=== PATIENT | male | born 1975 | race Caucasian/White ===

== ENCOUNTER → 2017-12-31 17:13 | Outpatient (CLI) | payer OTHER, SELFPAY | PROVIDERS: Family Provider Specialist; PCP Specialist; Visit Provider Physician Assistant Medical | DX: M45.9 Ankylosing spondylitis of unspecified sites in spine (principal); Z53.20 Procedure and treatment not carried out because of patient's decision for unspecified reasons ==

== ENCOUNTER → 2018-01-28 18:17 | Outpatient (CLI) | payer OTHER, SELFPAY ==
--- NOTE | 2018-01-28 | DI.MRI.S_ITS ---
PROCEDURE: MR CERVICAL SPINE WO/W CON INDICATIONS: ANKYLOSING SPONDYLITIS TECHNIQUE: Noncontrast sagittal T1 spin echo and T2 fast spin echo, sagittal STIR, foraminal oblique sagittal T2 fast spin echo, axial gradient echo or T2 fast spin echo through the cervical spine. After the administration of contrast, axial and sagittal T1 spin echo with fat saturation through the cervical spine. COMPARISON: [facility], CR, XR CERVICAL SPINE WITH OBLIQUES, 03/15/2017, 10:50. [facility], CR, XR LUMBAR SPINE WITH OBLIQUES, 03/15/2017, 10:50. FINDINGS: Image quality: Excellent. Alignment and curvature: There is normal bony alignment. Marrow: Marrow is normal in overall signal, without suspicious enhancement. There is a small degree of inflammatory change involving the upper anterior vertebral body of C5, adjacent to the degenerative changes at the C4-5 disc space. Spinal cord: Visualized spinal cord has normal size and signal. No cerebellar tonsillar herniation. No abnormal intramedullary enhancement. Paraspinous soft tissues: No paravertebral masses or suspicious enhancement. C2-3: Normal appearance except for minimal degenerative disc dehydration. C3-4: Normal appearance, except for mild degenerative disc height reduction and disc desiccation.. C4-5: Moderate degenerative disc disease, slight posterior disc bulge. Asymmetric right-sided moderate degenerative facet osteoarthritis and mild such degeneration on the left with potential for asymmetric impingement on the course of the C5 nerve roots, right greater than left. Mild anterior spinal stenosis C5-6: Degenerative disc disease is moderate, facet osteoarthritis is greater on the right than the left with asymmetric right greater than left foraminal stenosis, and likelihood of asymmetric impingement on the course of the right C6 nerve root. The posterior disc bulging is greater on the right than the left and there is secondary mild right-sided foraminal stenosis. C6-7: Normal appearance except for mild disc height reduction and desiccation. C7-T1: Normal appearance except for minimal disc height reduction and disc desiccation. IMPRESSION: No contrast enhancing lesion is found. Mild inflammatory component of degenerative disc disease at the anterior upper C5 vertebral body secondary to the moderate degenerative disc disease at C4-C5 immediately above. There is only a small degree of spinal stenosis and a greater degree of facet osteoarthritis with foraminal stenosis as discussed in detail by level of the body of the report above, generally greater on the right than the left. Morphologically the appearance along the cervical spine does not indicate presence of disseminated ankylosing spondylitis. There is a single area of anterior bridging of the cervical vertebral bodies, at C5-6. Ankylosis above and below this level is not found, and this appearance was also previously noted during plain film imaging 03/15/17. Dictated by: Rigoberto Bowden M.D. on 01/30/2018 at 11:44 Approved by: Rigoberto Bowden M.D. on 01/30/2018 at 12:02
== END ==
PROVIDERS: PCP Specialist; Visit Provider Physician Assistant Medical
DX: M45.0 Ankylosing spondylitis of multiple sites in spine (principal); M50.321 Other cervical disc degeneration at C4-C5 level; M48.02 Spinal stenosis, cervical region; M47.812 Spondylosis without myelopathy or radiculopathy, cervical region
CPT/HCPCS: 72156; A9579

== ENCOUNTER 2018-03-01 18:38 | Emergency (ER) | payer OTHER, SELFPAY ==
[2018-03-01 18:41] VITALS: BP 148/91; PULSE 81; RESP 18; TEMP 36.4; O2SAT 95; BMI 31.1
[2018-03-01 19:08] VITALS: RESP 20; O2SAT 94
[2018-03-01] MEDS: ALBUTEROL/IPRATROPIUM 3 ML AMPUL INH (19:08)
--- NOTE | 2018-03-01 19:22 | DI.RAD.S_ITS ---
PROCEDURE: XR CHEST 2V INDICATIONS: sob TECHNIQUE: 2 views of the chest were acquired. COMPARISON: [facility], , CHEST 2 VIEW, 03/22/2016, 18:56. FINDINGS: Surgical changes and devices: None. Lungs and pleura: No pleural effusions or pneumothorax. Lungs are clear. Mediastinum: Mediastinal contours are normal. Heart size is normal. Bones and chest wall: No suspicious bony abnormalities. Soft tissues appear unremarkable. IMPRESSION: No acute cardiopulmonary disease. Dictated by: Sena Rojas M.D. on 03/01/2018 at 19:42 Approved by: Sena Rojas M.D. on 03/01/2018 at 19:43
--- NOTE | 2018-03-01 19:32 | ED_ITS ---
HPI - SOB/Dyspnea <GEORGE Holden - Last Filed: 03/01/18 21:22> General Chief Complaint: Shortness of Breath/Dyspnea Stated Complaint: SOB Time Seen by Provider: 03/01/18 19:09 Source: patient and family Mode of arrival: ambulatory Limitations: no limitations History of Present Illness Patient is a 42-year-old nonsmoker who presents with a chief complaint of shortness of breath. He states he started coughing and having congestion approximately 2-3 weeks ago. He is now having shortness of breath as of the past few days. He states he is having chest pain and tightness, worse when he is taking a deep breath or coughing. Denies any fevers. He denies any nausea vomiting or diarrhea. Denies any sore throat or ear pain. Related Data Home Medications Medication Instructions Recorded Confirmed folic acid #0 03/22/16 meloxicam [Mobic] #0 03/22/16 omeprazole #0 03/22/16 Previous Rx's Medication Instructions Recorded oseltamivir [Tamiflu] 75 mg PO BID #10 cap 03/23/16 cyclobenzaprine 10 mg PO TID PRN #20 tab 03/01/18 doxycycline hyclate 100 mg PO BID #20 cap 03/01/18 Allergies Allergy/AdvReac Type Severity Reaction Status Date / Time Penicillins Allergy Intermediate Rash Verified 03/01/18 18:45 Review of Systems <[facility] - Last Filed: 03/01/18 21:22> Review of Systems GENERAL: Denies chills, fatigue, malaise, fever, sweats. HEENT: Denies sinus pain, ear pain, sore throat, difficulty swallowing, dizziness. RESPIRATORY: See HPI CARDIOVASCULAR: See HPI GASTROINTESTINAL: Denies nausea, vomiting, abdominal pain, diarrhea, constipation, melena. : Denies dysuria, frequency, incontinence, hematuria, urinary retention. MUSCULOSKELETAL: denies weakness, joint pain, or bony pain SKIN: Denies rash, skin lesions, or other NEUROLOGIC: Denies weakness, headache, numbness, change in speech, confusion, seizures, incoordination. PSYCHIATRIC: No concerning psychosocial issues. 12 point review of systems is negative except for those stated above Exam <[facility] - Last Filed: 03/01/18 21:22> Narrative Exam Narrative: GENERAL: This is a well-nourished, well-developed patient, in no acute distress HEAD: Atraumatic. Normocephalic. No temporal or scalp tenderness. EYES: Pupils equal round and reactive. Extraocular motions intact. No scleral icterus. No injection or drainage. ENT: Nose without bleeding, purulent drainage or septal hematoma. Throat without erythema, tonsillar hypertrophy or exudate. Uvula midline. Airway patent. NECK: Trachea midline. No JVD or lymphadenopathy. Supple, nontender, no meningeal signs. CARDIOVASCULAR: Regular rate and rhythm without murmurs, gallops, or rubs. RESPIRATORY: Clear to auscultation. Breath sounds equal bilaterally. No wheezes , rales, or rhonchi. Persistent cough during exam. No accessory muscle use. Pain on anterior posterior compression of chest wall. No pain on lateral compression of chest wall. GASTROINTESTINAL: Abdomen soft, non-tender, nondistended. No hepato-splenomegaly , or palpable masses. No guarding. EXTREMITIES: No clubbing, cyanosis, or edema. No joint tenderness, effusion, or edema noted. BACK: Nontender without deformity or crepitance. No flank tenderness. Pain to palpation of thoracic paraspinal muscles left side. NEURO: AOx3. SKIN: No rash or erythema. Initial Vital Signs Initial Vital Signs: Vital Signs Temperature 97.6 F 03/01/18 18:41 Pulse Rate 81 03/01/18 18:41 Respiratory Rate 18 03/01/18 18:41 Blood Pressure 148/91 H 03/01/18 18:41 Pulse Oximetry 95 03/01/18 18:41 <Janette Lord DO - Last Filed: 03/02/18 01:21> Initial Vital Signs Initial Vital Signs: Vital Signs Temperature 97.6 F 03/01/18 18:41 Pulse Rate 81 03/01/18 18:41 Respiratory Rate 18 03/01/18 18:41 Blood Pressure 148/91 H 03/01/18 18:41 Pulse Oximetry 95 03/01/18 18:41 Course <JUVENCIO Holden-BC - Last Filed: 03/01/18 21:22> Orders Ordered: ED Orders 03/01/18 18:49 EKG-12 Lead Stat 03/01/18 19:22 XR chest 2V Stat 03/01/18 19:35 Complete Blood Count AUTO DIFF Stat Comprehensive Metabolic Panel Stat Troponin & CK Cardiac Panel Stat Discontinued Medications Albuterol (Ventolin Hfa Prepack) 1 [facility] SEEINSTR ONE Stop: 03/01/18 20:55 Last Admin: 03/01/18 21:12 Dose: 1 box Albuterol/Ipratropium (Duoneb) 3 ml INH NOW ONE Stop: 03/01/18 19:07 Last Admin: 03/01/18 19:08 Dose: 3 ml Cyclobenzaprine HCl (Flexeril) 10 mg PO NOW ONE Stop: 03/01/18 20:55 Last Admin: 03/01/18 21:12 Dose: 10 mg Doxycycline Hyclate (Vibramycin) 100 mg PO NOW ONE Stop: 03/01/18 20:55 Last Admin: 03/01/18 21:12 Dose: 100 mg Vital Signs - 8 hr 03/01/18 18:41 03/01/18 19:08 03/01/18 20:33 Temperature 97.6 F Pulse Rate 81 75 Respiratory Rate 18 20 17 Blood Pressure 148/91 H Blood Pressure [Right Arm] 138/76 Pulse Oximetry 95 94 96 03/01/18 21:16 Temperature Pulse Rate 81 Respiratory Rate 15 Blood Pressure Blood Pressure [Right Arm] 134/89 Pulse Oximetry 98 <Janette Lord, - Last Filed: 03/02/18 01:21> Orders Ordered: ED Orders 03/01/18 18:49 EKG-12 Lead Stat 03/01/18 19:22 XR chest 2V Stat 03/01/18 19:35 Complete Blood Count AUTO DIFF Stat Comprehensive Metabolic Panel Stat Troponin & CK Cardiac Panel Stat Discontinued Medications Albuterol (Ventolin Hfa Prepack) 1 [facility] SEEINSTR ONE Stop: 03/01/18 20:55 Last Admin: 03/01/18 21:12 Dose: 1 box Albuterol/Ipratropium (Duoneb) 3 ml INH NOW ONE Stop: 03/01/18 19:07 Last Admin: 03/01/18 19:08 Dose: 3 ml Cyclobenzaprine HCl (Flexeril) 10 mg PO NOW ONE Stop: 03/01/18 20:55 Last Admin: 03/01/18 21:12 Dose: 10 mg Doxycycline Hyclate (Vibramycin) 100 mg PO NOW ONE Stop: 03/01/18 20:55 Last Admin: 03/01/18 21:12 Dose: 100 mg Vital Signs - 8 hr 03/01/18 18:41 03/01/18 19:08 03/01/18 20:33 Temperature 97.6 F Pulse Rate 81 75 Respiratory Rate 18 20 17 Blood Pressure 148/91 H Blood Pressure [Right Arm] 138/76 Pulse Oximetry 95 94 96 03/01/18 21:16 Temperature Pulse Rate 81 Respiratory Rate 15 Blood Pressure Blood Pressure [Right Arm] 134/89 Pulse Oximetry 98 MDM - SOB/Dyspnea <JUVENCIO Holden-BC - Last Filed: 03/01/18 21:22> Lab Data Result diagrams: 03/01/18 19:35 03/01/18 19:35 Lab Results 03/01/18 03/01/18 Range/Units 19:35 19:35 WBC 9.1 (4.5-11.0) X10^3/uL RBC 5.26 (4.5-5.9) X10^6/uL Hgb 15.6 (13.5-17.5) g/dL Hct 46.1 (41-53) % MCV 87.8 (80-100) fL MCH 29.8 (26-34) PG MCHC 33.9 (30-36) % RDW 14.8 (11.6-14.8) % Plt Count 260 (150-400) X10^3/uL Neut % (Auto) 55.8 (50-75) % Lymph % (Auto) 26.3 (25-40) % Tucker % (Auto) 12.2 (3-14) % Eos % (Auto) 4.8 H (2-4) % Baso % (Auto) 0.9 (0-2) % Neut # (Auto) 5100 (5982-3375) /uL Sodium 143 (137-145) mmol/L Potassium 4.0 (3.4-5.1) mmol/L Chloride 102 (98-107) mmol/L Carbon Dioxide 29 (22-32) mmol/L BUN 16 (9-20) mg/dL Creatinine 0.70 (0.66-1.25) mg/dL Estimated GFR > 60.0 (>60) mL/min BUN/Creatinine Ratio 22.9 H (6-22) Glucose 132 H (70-100) mg/dL Calcium 9.4 (8.4-10.2) mg/dL Total Bilirubin 0.5 (0.2-1.3) mg/dL AST 43 (17-59) IU/L ALT 50 (21-72) IU/L Alkaline Phosphatase 91 (38-126) U/L Total Creatine Kinase 132 (55-170) U/L CK-MB (CK-2) 1.31 (<2.37) ng/mL CK-MB (CK-2) Rel Index 1.0 L (1.5-5.0) % Troponin I < 0.012 (0.01-0.034) ng/mL Total Protein 7.4 (6.3-8.2) g/dL Albumin 4.3 (3.5-5.0) g/dL Globulin 3.1 (1.7-4.1) g/dL Albumin/Globulin Ratio 1.4 (1.0-2.8) Imaging Data Chest x-ray: Radiologist's impression: View Report History Print [address] [address] XRay Report Signed Patient: Bj Pollard MR#: [id number] : 1975 Acct:[id number] Age/Sex: 42 / M Date of Service: 03/01/18 Loc: Accession Number: [id number] Procedure: XR chest 2V Ordering Provider: Janette Chowdary PROCEDURE: XR CHEST 2V INDICATIONS: sob TECHNIQUE: 2 views of the chest were acquired. COMPARISON: [facility], CHEST 2 VIEW, 03/22/2016, 18:56. FINDINGS: Surgical changes and devices: None. Lungs and pleura: No pleural effusions or pneumothorax. Lungs are clear. Mediastinum: Mediastinal contours are normal. Heart size is normal. Bones and chest wall: No suspicious bony abnormalities. Soft tissues appear unremarkable. IMPRESSION: No acute cardiopulmonary disease. Dictated by: Sena Rojas M.D. on 03/01/2018 at 19:42 Approved by: Sena Rojas M.D. on 03/01/2018 at 19:43 ECG Data Attestation: I personally reviewed and interpreted this ECG as follows: Interpretation: Sinus rhythm. No ST elevation or depression. Ventricular rate 68. No ectopy noted. MDM Narrative Medical decision making narrative: Patient presents with a chief complaint of a cough going on for several weeks with recent shortness of breath associated with coughing episodes. He did complain of chest pain upon coughing and taking deep breaths. He had a normal EKG as well as an negative troponin. The fact his pain is reproducible as encouraging is a musculoskeletal etiology. He is immunocompromised. Thus given the duration of his cough I am going to to treat him for an atypical pneumonia. I will use doxycycline given high resistance rates of azithromycin. I discussed at length with the patient use of sunscreen. Given the patient's muscle spasm on exam and associated pain, I am also giving him prescription for Flexeril. I discussed at length return precautions the emergency department including sudden shortness of breath or chest pain or acute concerns. I encouraged him to follow up with primary care provider in a few days. Patient and had no questions or concerns upon discharge. <Janette Lord, DO - Last Filed: 03/02/18 01:21> Lab Data Lab Results 03/01/18 03/01/18 Range/Units 19:35 19:35 WBC 9.1 (4.5-11.0) X10^3/uL RBC 5.26 (4.5-5.9) X10^6/uL Hgb 15.6 (13.5-17.5) g/dL Hct 46.1 (41-53) % MCV 87.8 (80-100) fL MCH 29.8 (26-34) PG MCHC 33.9 (30-36) % RDW 14.8 (11.6-14.8) % Plt Count 260 (150-400) X10^3/uL Neut % (Auto) 55.8 (50-75) % Lymph % (Auto) 26.3 (25-40) % Tucker % (Auto) 12.2 (3-14) % Eos % (Auto) 4.8 H (2-4) % Baso % (Auto) 0.9 (0-2) % Neut # (Auto) 5100 (2215-2442) /uL Sodium 143 (137-145) mmol/L Potassium 4.0 (3.4-5.1) mmol/L Chloride 102 (98-107) mmol/L Carbon Dioxide 29 (22-32) mmol/L BUN 16 (9-20) mg/dL Creatinine 0.70 (0.66-1.25) mg/dL Estimated GFR > 60.0 (>60) mL/min BUN/Creatinine Ratio 22.9 H (6-22) Glucose 132 H (70-100) mg/dL Calcium 9.4 (8.4-10.2) mg/dL Total Bilirubin 0.5 (0.2-1.3) mg/dL AST 43 (17-59) IU/L ALT 50 (21-72) IU/L Alkaline Phosphatase 91 (38-126) U/L Total Creatine Kinase 132 (55-170) U/L CK-MB (CK-2) 1.31 (<2.37) ng/mL CK-MB (CK-2) Rel Index 1.0 L (1.5-5.0) % Troponin I < 0.012 (0.01-0.034) ng/mL Total Protein 7.4 (6.3-8.2) g/dL Albumin 4.3 (3.5-5.0) g/dL Globulin 3.1 (1.7-4.1) g/dL Albumin/Globulin Ratio 1.4 (1.0-2.8) Discharge Plan Departure Patient Disposition: Home Clinical Impression: Lower respiratory infection (e.g., bronchitis, pneumonia, pneumonitis, pulmonitis) Discharge Date/Time: 03/01/18 21:23 Interventions: ED Discharge Assessment Last Done: 03/01/18 21:15 Instructions: DI for Pneumonia -- Adult, DI for Back Spasm, DI for Atypical Pneumonia Activity Restrictions/Additional Instructions: Given the duration of your cough combined with your immunocompromised status, I am initiating treatment with antibiotics. Please use sunscreen while taking doxycycline. I am also giving you Flexeril for the muscle pain in you back. 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 Please follow -up with her primary care provider if not feeling better in a few days. Please come back to the emergency department for any acute concerns such as chest pain or shortness of breath. Prescriptions: New doxycycline hyclate 100 mg capsule 100 mg PO BID Qty: 20 RF: 0 cyclobenzaprine 10 mg tablet 10 mg PO TID PRN (Reason: muscle spasm) Qty: 20 RF: 0 No Action meloxicam [Mobic] 7.5 mg Tablet Qty: 0 RF: 0 omeprazole 10 mg Capsule,Delayed Release(Dr/Ec) Qty: 0 RF: 0 folic acid 800 mcg Tablet Qty: 0 RF: 0 oseltamivir [Tamiflu] 75 MG capsule 75 mg PO BID Qty: 10 RF: 0 Referrals: Vicente Montenegro MD [Primary Care Provider] - <Janette Lord DO - Last Filed: 03/02/18 01:21> Cosign ED Attending Cosignature Attestation: I was immediately available in the department for consultation. This documentation has been reviewed and I agree with assessment and plan. Supervised by Janette Lord DO
[2018-03-01 19:59] LABS: Add Manual Diff / Slide Review NO; Basophils Percent Auto 0.9 % (0-2); Eosinophils Percent Auto 4.8 % (2-4); Hematocrit 46.1 % (41-53); Hemoglobin 15.6 g/dL (13.5-17.5); Lymphocytes Percent Auto 26.3 % (25-40); Mean Corpuscular HGB Conc 33.9 % (30-36); Mean Corpuscular Hemoglobin 29.8 PG (26-34); Mean Corpuscular Volume 87.8 fL (80-100); Monocytes Percent Auto 12.2 % (3-14); Neutrophils Absolute Auto 5100 /uL (1500-7000); Neutrophils Percent Auto 55.8 % (50-75); Platelet Count 260 X10^3/uL (150-400); Red Blood Cell Count 5.26 X10^6/uL (4.5-5.9); Red Cell Distribution Width 14.8 % (11.6-14.8); White Blood Cell Count 9.1 X10^3/uL (4.5-11.0)
[2018-03-01 20:09] LABS: Alanine Aminotransferase 50 IU/L (21-72); Albumin 4.3 g/dL (3.5-5.0); Albumin Globulin Ratio 1.4 (1.0-2.8); Alkaline Phosphatase 91 U/L (38-126); Aspartate Aminotransferase 43 IU/L (17-59); BUN Creatinine Ratio 22.9 (6-22); Bilirubin Total 0.5 mg/dL (0.2-1.3); Blood Urea Nitrogen 16 mg/dL (9-20); Calcium 9.4 mg/dL (8.4-10.2); Carbon Dioxide 29 mmol/L (22-32); Chloride 102 mmol/L (98-107); Creatine Kinase 132 U/L (55-170); Estimated Glomerular Filt Rate > 60.0 mL/min (>60); Globulin 3.1 g/dL (1.7-4.1); Glucose 132 mg/dL (70-100); HEMOLYSIS 53 (0-50); Sodium 143 mmol/L (137-145); Total Protein 7.4 g/dL (6.3-8.2)
[2018-03-01 20:23] LABS: Troponin I < 0.012 ng/mL (0.01-0.034)
[2018-03-01 20:24] LABS: Creatine Kinase MB 1.31 ng/mL (<2.37)
[2018-03-01 20:33] VITALS: BP 138/76; PULSE 75; RESP 17; O2SAT 96
[2018-03-01] MEDS: ALBUTEROL HFA PREPACK 1 BOX MISC (21:12)
[2018-03-01] MEDS: CYCLOBENZAPRINE 10 MG TABLET PO (21:12)
[2018-03-01] MEDS: DOXYCYCLINE HYCLATE 100 MG TABLET PO (21:12)
[2018-03-01 21:16] VITALS: BP 134/89; PULSE 81; RESP 15; O2SAT 98
== END 2018-03-01 21:23 | disposition home or self-care (01) ==
PROVIDERS: Emergency Provider Nurse Practitioner Family; PCP Specialist
DX: J22 Unspecified acute lower respiratory infection (principal)
CPT/HCPCS: 71046; 80053; 82550; 82553; 84484; 85025; 93005; 94640; 99282; 99285

== ENCOUNTER 2018-07-03 18:51 | Emergency (ER) | payer OTHER, SELFPAY ==
[2018-07-03 19:12] VITALS: BP 160/93; PULSE 86; RESP 14; TEMP 37.2; O2SAT 98; BMI 30.9
--- NOTE | 2018-07-03 19:12 | ED_ITS ---
HPI - Eye Problem General Chief complaint: Eye Problems Stated complaint: FEELS LIKE SOMETHING IN HIS LEFT EYE Time Seen by Provider: 07/03/18 18:52 Source: patient Mode of arrival: ambulatory Limitations: no limitations History of Present Illness HPI Narrative: 42-year-old male here for evaluation of left eye irritation. Patient states that he started have some irritation yesterday and worsened today. He states he feels like there something in his eye. States he was using a weed whacker last weekend but nothing recently. Is not doing any metal work. Does not wear glasses or contacts. Has not tried anything for his symptoms. He states that he has had some sinus congestion recently. Does have some ear pain. He states that the discomfort is causing him to have a headache. no specific trauma to his eye. Has never had p.r. K or LASIK Related Data Home Medications Medication Instructions Recorded Confirmed folic acid #0 03/22/16 meloxicam [Mobic] #0 03/22/16 omeprazole #0 03/22/16 Previous Rx's Medication Instructions Recorded oseltamivir [Tamiflu] 75 mg PO BID #10 cap 03/23/16 cyclobenzaprine 10 mg PO TID PRN #20 tab 03/01/18 doxycycline hyclate 100 mg PO BID #20 cap 03/01/18 erythromycin 0.5 inch EYE-LEFT QID 3 Days #3.5 07/03/18 gram Allergies Allergy/AdvReac Type Severity Reaction Status Date / Time Penicillins Allergy Intermediate Rash Verified 07/03/18 19:12 Review of Systems Constitutional Denies fever(s) and Reports headache(s) Eyes Reports blurry vision, Denies diplopia, Reports dry eyes, Reports irritation, Reports itchy eyes, Reports eye pain and Reports photophobia Comments: All of his symptoms are left eye ENT Ears, Nose, Mouth, and Throat: Denies vertigo, Denies dizziness, Reports headache(s), Denies disequilibrium, Reports sinus pressure and Denies sore throat Cardiovascular Denies chest pain Respiratory Denies cough Musculoskeletal Denies myalgias and Denies arthralgias Integumentary/Breasts Denies rash Neurologic Denies behavioral changes, Denies vertigo, Denies dizziness, Reports headache(s), Denies paresthesias and Denies disequilibrium Psychiatric Denies behavioral changes Hematologic/Lymphatic Denies easy bleeding and Denies easy bruising Allergic/Immunologic Denies urticaria and Reports itchy eyes [facility] Medical History Rheumatoid arthritis (Acute) Social History Smoking Status: Never smoker Social History Smoking Status: Never smoker Exam Initial Vital Signs Initial Vital Signs: Vital Signs Temperature 98.9 F 07/03/18 19:12 Pulse Rate 86 07/03/18 19:12 Respiratory Rate 14 07/03/18 19:12 Blood Pressure 160/93 H 07/03/18 19:12 Pulse Oximetry 98 07/03/18 19:12 Const General: cooperative, healthy appearing, comfortable, well developed, well groomed and No acute distress Orientation: alert, awake and oriented x3 HENMT Head: normal to inspection and normocephalic Ears: hearing grossly normal bilaterally and TM's normal bilaterally Nose: external nose normal Face and sinus: normal facial exam Mouth: oral mucosae normal Throat: posterior oropharynx normal Eyes Pupils: PERRL EOM: EOM intact bilaterally Other: Right eye unremarkable. Left eye has some keratitis. No foreign body noted with direct vision and with the slit lamp. I did norman the upper eyelid and lower eyelid. No uptake with the fluorescein stain. No cells or flare noticed with the slit lamp. No consensual photophobia. Does have some direct photophobia with the left eye. Interocular pressure right eye 20 interocular pressure left eye 17 Resp Effort & Inspection: normal respiratory effort Skin Other: Some dry skin and redness around the left eye. Neuro General: alert and awake Cognition: normal cognition Speech: speech normal Extrem General: normal to inspection and capillary refill normal Course Orders Ordered: Discontinued Medications Erythromycin (Erythromycin Ophth Oint) 1 applic EYE-LEFT NOW ONE Stop: 07/03/18 19:43 Last Admin: 07/03/18 19:47 Dose: 1 applic Vital Signs - 8 hr 07/03/18 19:12 07/03/18 19:13 07/03/18 19:57 Temperature 98.9 F 98.9 F Pulse Rate 86 86 70 Respiratory Rate 14 14 18 Blood Pressure 160/93 H 160/93 H Blood Pressure [Left Arm] 159/105 H Pulse Oximetry 98 98 98 MDM - Eye Problem MDM Narrative Medical decision making narrative: No foreign body seen. No corneal abrasions seen. The redness around his eye is most consistent with him rubbing his eye not from a cellulitis. He has no consensual photophobia. No cells or flare seen on the slit lamp. Considered iritis/uveitis however I feel that a conjunct ivitis is most likely the cause currently. He does not wear glasses or contacts. Will treat with erythromycin ointment for now. He was given strict return precautions. He was given follow-up instructions. He expressed understanding and agreement with plan. Discharge Plan Departure Patient Disposition: Home Clinical Impression: Conjunctivitis Qualifiers: Conjunctivitis type: acute Acute conjunctivitis type: unspecified Laterality: left Qualified Code(s): H10.32 - Unspecified acute conjunctivitis, left eye Discharge Date/Time: 07/03/18 20:05 Interventions: ED Discharge Assessment Last Done: 07/03/18 20:05 Instructions: Conjunctivitis Activity Restrictions/Additional Instructions: Be sure to wash your hands frequently. Do not share towels. Use the antibiotic ointment as directed. If the symptoms worsen or the redness around your eye worsens or if any other new symptoms please return to the emergency department for further evaluation. Prescriptions: New erythromycin 5 mg/gram (0.5 %) ointment 0.5 inch EYE-LEFT QID 3 Days Qty: 3.5 RF: 0 No Action meloxicam [Mobic] 7.5 mg Tablet Qty: 0 RF: 0 omeprazole 10 mg Capsule,Delayed Release(Dr/Ec) Qty: 0 RF: 0 folic acid 800 mcg Tablet Qty: 0 RF: 0 oseltamivir [Tamiflu] 75 MG capsule 75 mg PO BID Qty: 10 RF: 0 doxycycline hyclate 100 mg capsule 100 mg PO BID Qty: 20 RF: 0 cyclobenzaprine 10 mg tablet 10 mg PO TID PRN (Reason: muscle spasm) Qty: 20 RF: 0 Referrals: Vicente Montenegro MD [Primary Care Provider] -
[2018-07-03 19:13] VITALS: BP 160/93; PULSE 86; RESP 14; TEMP 37.2; O2SAT 98; BMI 30.9
[2018-07-03] MEDS: ERYTHROMYCIN OPHTH 1 GM OINT 1 APPLIC EYE-LEFT (19:47)
[2018-07-03 19:57] VITALS: BP 159/105; PULSE 70; RESP 18; O2SAT 98
== END 2018-07-03 20:05 | disposition home or self-care (01) ==
PROVIDERS: Emergency Provider Emergency Medicine; PCP Specialist
DX: H10.32 Unspecified acute conjunctivitis, left eye (principal); H92.03 Otalgia, bilateral; L98.8 Other specified disorders of the skin and subcutaneous tissue
CPT/HCPCS: 99283

== ENCOUNTER → 2020-03-29 15:40 | Outpatient (CLI) | payer OTHER, SELFPAY ==
--- NOTE | 2020-03-29 15:42 | DI.CT.S_ITS ---
PROCEDURE: CT SOFT TISSUE NECK W CON INDICATIONS: Generalized enlarged lymph nodes TECHNIQUE: After the administration of intravenous contrast, 3.0 mm axial sections acquired from the sella to the aortic arch. Additional oblique axial 3.0 mm sections acquired through the pharynx. 3 mm thick coronal and sagittal reformats were generated. For radiation dose reduction, the following was used: automated exposure control. COMPARISON: [facility], MR, MR CERVICAL SPINE WO/W CON, 01/28/2018, 18:30. [facility], CR, XR CERVICAL SPINE WITH OBLIQUES, 03/15/2017, 10:50. FINDINGS: Image quality: Excellent. Lymph nodes: No enlarged lymph nodes seen throughout the neck. However, borderline prominent lymph nodes are seen, including within the submandibular regions. Vessels: Visualized vasculature appears patent. Neck spaces: The oropharynx, nasopharynx, and pharynx demonstrate no mucosal lesions. The vocal cords, false vocal cords, pyriform sinuses, epiglottis, vallecula, and tongue base all appear normal. Extramucosal spaces appear unremarkable. Glands: A markers placed upon the area of clinical concern, as seen on series 2, image 2. Immediately deep to this marker, there is a normal appearing right submandibular gland, which is slightly larger than the contralateral left submandibular gland. Note is made of a 1 cm calcification along the anterior aspect of the left submandibular gland, as on series 2, image 45. No regional masses can be seen. The parotid glands appear normal. Thyroid gland demonstrates no significant abnormality. Miscellaneous: Visualized brain and orbits appear normal. Lung apices appear clear. Superficial soft tissues appear normal. Bones: No suspicious bony lesions. Visualized sinuses and mastoids appear unremarkable. Relatively prominent cervical spine degenerative changes are seen, with at least moderate disc space narrowing at C3-C4 and C4-C5, with moderate to severe disc space narrowing at C5-C6 and C6-C7. Prominent bridging anterior osteophytes are seen at C5-C6. IMPRESSION: No enlarged lymph nodes or masses are seen. Given the placement of the soft tissue marker at the area of clinical concern, the palpated lesion may simply be related to a normal appearing RIGHT submandibular gland, which is slightly larger than the normal LEFT submandibular gland. There is a focus of calcification along the anterior aspect of the LEFT submandibular gland, which may be related to sialolithiasis. Please correlate with known patient history. Incidental note is made of: Relatively prominent cervical spine degenerative change. Dictated by: Alejandro Bergman M.D. on 03/29/2020 at 15:31 Approved by: Alejandro Bergman M.D. on 03/29/2020 at 15:35
== END ==
PROVIDERS: PCP Family Medicine; Referring Provider Family Medicine; Visit Provider Physician Assistant Medical
DX: R59.1 Generalized enlarged lymph nodes (principal); M47.812 Spondylosis without myelopathy or radiculopathy, cervical region
CPT/HCPCS: 70491; Q9967

== ENCOUNTER 2020-07-01 10:41 | Emergency (ER) | payer OTHER, SELFPAY ==
[2020-07-01 10:50] VITALS: BP 145/97; PULSE 98; RESP 18; TEMP 36.8; O2SAT 96; BMI 31.6
[2020-07-01 11:33] LABS: Add Manual Diff / Slide Review NO; Basophils Absolute Auto 100 /uL (0-100); Basophils Percent Auto 1.1 % (0-2); Eosinophils Absolute Auto 500 /uL (0-450); Eosinophils Percent Auto 6.9 % (2-4); Hematocrit 45.3 % (41-53); Hemoglobin 15.8 g/dL (13.5-17.5); Lymphocytes Absolute Auto 1600 /uL (1100-4500); Lymphocytes Percent Auto 21.3 % (25-40); Mean Corpuscular HGB Conc 34.9 % (30-36); Mean Corpuscular Hemoglobin 31.7 PG (26-34); Mean Corpuscular Volume 90.9 fL (80-100); Monocytes Absolute Auto 500 /uL (0-900); Monocytes Percent Auto 6.6 % (3-14); Neutrophils Absolute Auto 4700 /uL (1500-7000); Neutrophils Percent Auto 64.1 % (50-75); Platelet Count 270 X10^3/uL (150-400); Red Blood Cell Count 4.98 X10^6/uL (4.5-5.9); Red Cell Distribution Width 13.6 % (11.6-14.8); White Blood Cell Count 7.3 X10^3/uL (4.5-11.0)
[2020-07-01 11:43] LABS: Alanine Aminotransferase 64 IU/L (<50); Albumin 4.6 g/dL (3.5-5.0); Albumin Globulin Ratio 1.5 (1.0-2.8); Alkaline Phosphatase 73 U/L (38-126); Aspartate Aminotransferase 56 IU/L (17-59); BUN Creatinine Ratio 23.8 (6-22); Bilirubin Total 0.6 mg/dL (0.2-1.3); Blood Urea Nitrogen 19 mg/dL (9-20); Calcium 9.6 mg/dL (8.4-10.2); Carbon Dioxide 27 mmol/L (22-32); Chloride 102 mmol/L (98-107); Estimated Glomerular Filt Rate > 60.0 mL/min (>60); Globulin 3.1 g/dL (1.7-4.1); Glucose 158 mg/dL (70-100); HEMOLYSIS 50 (0-50); Potassium 4.1 mmol/L (3.4-5.1); Sodium 139 mmol/L (137-145); Total Protein 7.7 g/dL (6.3-8.2)
[2020-07-01] MEDS: ACETAMINOPHEN 325 MG TABLET 975 MG PO (12:01)
--- NOTE | 2020-07-01 12:03 | PC.NURSE ---
Pt c/o right flank pain on and off but increasing in frequency. Has h/o kidney stones and this feel similar.
--- NOTE | 2020-07-01 12:06 | ED_ITS ---
HPI - Back Pain/Injury General Chief Complaint: Urogenital-Male Stated Complaint: RIGHT SIDE BACK PAIN, DEEP, ACHING PAIN Time Seen by Provider: 07/01/20 11:42 Source: patient Limitations: no limitations History of Present Illness HPI Narrative: Patient is a 44-year-old male with history of rheumatoid arthritis who presents with right-sided back pain ongoing for last 3-4 days. He has not taken anything for pain, but he has taken Tylenol p.m. at night which does seem to help. It is pinpoint and radiates. [facility] He has no radiation down to his groin like he did with his prior kidney stone. He has minimal abdominal pain no nausea or vomiting. Pinpoint is worse with movement MD Complaint: back pain Location: thoracic spine Severity: mild Related Data Allergies Allergy/AdvReac Type Severity Reaction Status Date / Time No Known Drug Allergies Allergy Verified 07/01/20 10:54 Review of Systems Review of Systems Narrative: GENERAL: Denies chills,fever HEENT: Denies throat pain RESPIRATORY: Denies dyspnea, cough, wheezing CARDIOVASCULAR: Denies chest pain, palpitations GASTROINTESTINAL: Denies nausea, vomiting MUSCULOSKELETAL: See HPI SKIN: No rash, no laceration, no pruritus NEUROLOGIC: Denies weakness, dizziness, headache, numbness 8 point review of systems is negative except for those stated above and HPI Patient History Medical History Rheumatoid arthritis Social History Smoking Status: Never smoker Smoking Status: Never smoker alcohol intake frequency: 0-2 drinks per day Substance Use Type: does not use Exam Initial Vital Signs Initial Vital Signs: Vital Signs Temperature 98.2 F 07/01/20 10:50 Pulse Rate 98 H 07/01/20 10:50 Respiratory Rate 18 07/01/20 10:50 Blood Pressure 145/97 H 07/01/20 10:50 Pulse Oximetry 96 07/01/20 10:50 GENERAL: Well-appearing, well-nourished and in no acute distress. HEENT: Head atraumatic,EOMI, pupils reactive, face symmetric, moist mucous membranes CARDIOVASCULAR: Regular rate and rhythm without murmurs, rubs or gallops. RESPIRATORY: Breath sounds equal bilaterally, no wheezes rales or rhonchi. ABDOMEN: Soft, nontender. Normoactive bowel sounds all 4 quadrants. No guarding or rebound. BACK: No vertebral tenderness no step-off, pinpoint tender over all [place] posteriorly pain reproducible with palpation : No CVA tenderness EXTREMITIES: Normal range of motion, no clubbing or edema. Neurovascularly intact NEUROLOGICAL: Alert and oriented x4.Normal gait and speech. SKIN: Warm, dry, no laceration, no petechiae, no rashes or lesions. Course Orders Ordered: ED Orders 07/01/20 11:20 Complete Blood Count AUTO DIFF Stat Comprehensive Metabolic Panel Stat Discontinued Medications Acetaminophen (Acetaminophen 325 Mg Tablet) 975 mg PO NOW ONE Stop: 07/01/20 11:43 Last Admin: 07/01/20 12:01 Dose: 975 mg Documented by: TIMOTHY Vital Signs Vital signs: Vital Signs - 8 hr 07/01/20 10:50 07/01/20 12:19 Temperature 98.2 F Pulse Rate 98 H 77 Respiratory Rate 18 14 Blood Pressure 145/97 H 136/79 Pulse Oximetry 96 94 MDM - Back Pain/Injury Lab Data Attestation: I reviewed the patient's lab results. Result diagrams: 07/01/20 11:20 07/01/20 11:20 Labs: Lab Results 07/01/20 07/01/20 Range/Units 11:20 11:20 WBC 7.3 (4.5-11.0) X10^3/uL RBC 4.98 (4.5-5.9) X10^6/uL Hgb 15.8 (13.5-17.5) g/dL Hct 45.3 (41-53) % MCV 90.9 (80-100) fL MCH 31.7 (26-34) PG MCHC 34.9 (30-36) % RDW 13.6 (11.6-14.8) % Plt Count 270 (150-400) X10^3/uL Neut % (Auto) 64.1 (50-75) % Lymph % (Auto) 21.3 L (25-40) % [place] % (Auto) 6.6 (3-14) % Eos % (Auto) 6.9 H (2-4) % Baso % (Auto) 1.1 (0-2) % Neut # (Auto) 4700 (4775-3815) /uL Lymph # (Auto) 1600 (5506-5667) /uL [place] # (Auto) 500 (0-900) /uL Eos # (Auto) 500 H (0-450) /uL Baso # (Auto) 100 (0-100) /uL Sodium 139 (137-145) mmol/L Potassium 4.1 (3.4-5.1) mmol/L Chloride 102 (98-107) mmol/L Carbon Dioxide 27 (22-32) mmol/L BUN 19 (9-20) mg/dL Creatinine 0.80 (0.66-1.25) mg/dL Estimated GFR > 60.0 (>60) mL/min BUN/Creatinine Ratio 23.8 H (6-22) Glucose 158 H (70-100) mg/dL Calcium 9.6 (8.4-10.2) mg/dL Total Bilirubin 0.6 (0.2-1.3) mg/dL AST 56 (17-59) IU/L ALT 64 H (<50) IU/L Alkaline Phosphatase 73 (38-126) U/L Total Protein 7.7 (6.3-8.2) g/dL Albumin 4.6 (3.5-5.0) g/dL Globulin 3.1 (1.7-4.1) g/dL Albumin/Globulin Ratio 1.5 (1.0-2.8) Urine Dip Bedside Urine Glucose Negative Bedside Urine Bilirubin - Negative Bedside Urine Ketone - Negative Urine Specific [place] 1.030 Bedside Urine Occult Blood - Negative Bedside Urine pH 6 Bedside Urine Protein - Negative Bedside Urine Urobilinogen - Negative Bedside Urine Nitrite - Negative Bedside Urine Leukocytes - Negative Esterase MDM Narrative Medical decision making narrative: At this time patient has pain point pain reproducible with palpation is more consistent with musculoskeletal since not show any blood reassuring at this time he has had no injury and I see no indication for imaging. Low suspicion for kidney stone. Abdomen is soft unlikely to be cholecystitis. He is unable to take NSAIDs due to his rheumatoid arthritis medication. He is given Tylenol here in the ED recommend he take Tylenol for pain. Recommend follow-up Discharge Plan Departure Patient Disposition: Home Clinical Impression: Back pain Qualifiers: Back pain location: thoracic back pain Chronicity: acute Back pain laterality: right Qualified Code(s): M54.6 - Pain in thoracic spine Instructions: DI for Thoracic Back Pain Activity Restrictions/Additional Instructions: *You have been diagnosed with back pain *What to do: At this time likely musculoskeletal pain recommend light massage and heating. *Continue to take medications as directed Tylenol 1000 mg every 6 hours if needed for [id number] pain *Follow up with your primary care provider in 2-3 days *Return to ER if you should have increasing pain, nausea vomiting, fever or any new, worsening or concerning symptoms Referrals: Emerald Rosa MD [Primary Care Provider] -
[2020-07-01 12:19] VITALS: BP 136/79; PULSE 77; RESP 14; O2SAT 94
== END 2020-07-01 12:21 | disposition home or self-care (01) ==
PROVIDERS: Emergency Provider Emergency Medicine; PCP Family Medicine
DX: M54.6 Pain in thoracic spine (principal)
CPT/HCPCS: 80053; 81003; 85025; 99283

== ENCOUNTER 2020-08-15 18:45 | Emergency (ER) | payer OTHER, SELFPAY ==
[2020-08-15 18:50] VITALS: BP 150/90; PULSE 70; RESP 16; TEMP 36.7; O2SAT 96
--- NOTE | 2020-08-15 20:19 | ED_ITS ---
HPI - Skin/Abscess/Foreign Bdy General Chief complaint: Skin/Abscess/Foreign Body Stated complaint: lump lower left abdomen Time Seen by Provider: 08/15/20 19:33 Source: patient Mode of arrival: Ambulatory Limitations: no limitations History of Present Illness HPI narrative: This is a 44-year-old male comes to the emergency department with complaint of a lump on his left lower abdomen which has since developed inc reasing swelling, discomfort and redness. He states that very painful but mildly tender. It has been irritated by his pants as well as seatbelt. Patient denies any fevers chills. He denies any other symptoms. He has shaved his chest and abdomen recently. And his family at bedside notes he often gets ingrown hairs on his chin. Patient does have a history of rheumatoid arthritis. He is on immune modulator Cosentyx. Patient denies any other regular medications. He has not had other issues with skin infections he is aware of. He denies any drug allergies. He has not had similar symptoms in this area. Related Data Previous Rx's Medication Instructions Recorded clindamycin HCl 300 mg PO QID #28 cap 08/15/20 Allergies Allergy/AdvReac Type Severity Reaction Status Date / Time No Known Drug Allergies Allergy Verified 07/01/20 10:54 Review of Systems Review of Systems ROS Unobtainable: All systems reviewed & are unremarkable except as noted in HPI and below Patient History Medical History Rheumatoid arthritis Social History Smoking Status: Never smoker Smoking Status: Never smoker alcohol intake frequency: 0-2 drinks per day Substance Use Type: does not use Exam Narrative Exam Narrative: GENERAL: Alert and oriented x three, well-nourished male in mild distress. HEENT: Head normocephalic, atraumatic, EOMI, pupils reactive, face symmetric, moist mucous membranes NECK: Supple, full range of motion CARDIOVASCULAR: Regular rate and rhythm without murmurs, rubs or gallops. RESPIRATORY: Breath sounds equal bilaterally, no wheezes rales or rhonchi. ABDOMEN: Soft, nontender. Normoactive bowel sounds all 4 quadrants. No guarding or rebound, rigidity, no mass. Patient has a 6 cm x 3 cm area of cellulitis with a centralized area of fluctuance that is about a cm in size which is soft. Areas only very mildly tender to touch. There is no active drainage. : No CVA tenderness EXTREMITIES: Normal range of motion, no clubbing or edema. Neurovascularly intact NEUROLOGICAL: Cranial nerves II through XII grossly intact. Moving all extremities SKIN: Warm, dry, no petechiae, no rashes or lesions. Initial Vital Signs Initial Vital Signs: Vital Signs Temperature 98.0 F 08/15/20 18:50 Pulse Rate 70 08/15/20 18:50 Respiratory Rate 16 08/15/20 18:50 Blood Pressure 150/90 H 08/15/20 18:50 Pulse Oximetry 96 08/15/20 18:50 Procedures Abscess I/D I&D #1: Site: abdomen Side (if applicable): left (lower abdomen) Local Anesthetic: lidocaine 1% Amount of anesthesia used (mL): 2 Technique: needle aspiration and incised with #11 blade Amount of fluid expressed (mL): 3 Irrigation: Yes Packing used?: none Course Orders Ordered: ED Orders 08/15/20 20:51 Wound Culture and Gram Stain Stat Discontinued Medications Clindamycin HCl (Clindamycin 150 Mg Capsule) 300 mg PO NOW ONE Stop: 08/15/20 20:33 Last Admin: 08/15/20 20:37 Dose: 300 mg Documented by: HELADIO Lidocaine/Sodium Bicarbonate (Lido 1%/Sod Bicarb 8.4% (10ml) 10 Ml Syringe) 10 ml INJ NOW ONE Stop: 08/15/20 20:33 Last Admin: 08/15/20 20:37 Dose: 10 ml Documented by: HELADIO Vital Signs Vital signs: Vital Signs - 8 hr 08/15/20 18:50 08/15/20 21:02 Temperature 98.0 F Pulse Rate 70 78 Respiratory Rate 16 20 Blood Pressure 150/90 H 144/90 H Pulse Oximetry 96 95 MDM - Skin/Abscess/Foreign Bdy Imaging Data bedside US: My Impression: Bedside ultrasound shows a 1 cm area of fluid collection just below the skin. It does not appear loculated. Discharge Plan Departure Patient Disposition: Home Clinical Impression: Abscess of skin of abdomen, Cellulitis of abdominal wall Instructions: DI for Skin Abscess Activity Restrictions/Additional Instructions: Follow-up with your physician in next 2-3 days for wound check. Take antibiotics until completely gone. Prescription to [facility] You may take Tylenol up to a 1000 mg every 8 hours and or ibuprofen up to 800 mg every 8 hours as needed for pain. Wound Care: Keep wound(s) clean and dry. Wash daily with soap and water only. Do not use over the counter products (alcohol or peroxide)on the wounds unless instructed by a physician. If wound condition worsens (increased/expanding redness, developing fluid blisters, or worsening pain), either contact your doctor for an urgent re- assessment , or return to the Emergency Department. Return to the Emergency Department for any new or worsening symptoms. Return if fever greater than 100.4 Fahrenheit, increased swelling, increasing pain or worsening symptoms such as increased discharge or spreading redness. Use warm compresses 3 times daily for 20 minutes to the affected area. If there is packing in place do not pull it out, if it falls out do not try to replace it. Prescriptions: New clindamycin HCl 300 mg capsule 300 mg PO QID Qty: 28 RF: 0 Referrals: Emerald Rosa MD [Primary Care Provider] -
[2020-08-15] MEDS: LIDO 1%/SOD BICARB 8.4% (10ML) 10 ML SYRINGE INJ (20:37)
[2020-08-15] MEDS: CLINDAMYCIN 150 MG CAPSULE 300 MG PO (20:37)
[2020-08-15 21:02] VITALS: BP 144/90; PULSE 78; RESP 20; O2SAT 95
== END 2020-08-15 21:03 | disposition home or self-care (01) ==
PROVIDERS: Emergency Provider Emergency Medicine; PCP Family Medicine
DX: L03.311 Cellulitis of abdominal wall (principal); L02.211 Cutaneous abscess of abdominal wall
CPT/HCPCS: 10060; 87070; 87075; 87077; 87147; 87186; 87205; 99283

== ENCOUNTER → 2020-12-30 08:09 | Outpatient (CLI) | payer OTHER, SELFPAY ==
[2020-12-30 08:36] LABS: Add Manual Diff / Slide Review NO; Basophils Absolute Auto 100 /uL (0-100); Basophils Percent Auto 1.3 % (0-2); Eosinophils Absolute Auto 500 /uL (0-450); Eosinophils Percent Auto 6.2 % (2-4); Hematocrit 43.8 % (41-53); Hemoglobin 15.2 g/dL (13.5-17.5); Lymphocytes Absolute Auto 1400 /uL (1100-4500); Lymphocytes Percent Auto 18.5 % (25-40); Mean Corpuscular HGB Conc 34.6 % (30-36); Mean Corpuscular Hemoglobin 30.5 PG (26-34); Mean Corpuscular Volume 88.1 fL (80-100); Monocytes Absolute Auto 700 /uL (0-900); Monocytes Percent Auto 9.6 % (3-14); Neutrophils Absolute Auto 4900 /uL (1500-7000); Neutrophils Percent Auto 64.4 % (50-75); Platelet Count 287 X10^3/uL (150-400); Red Blood Cell Count 4.98 X10^6/uL (4.5-5.9); Red Cell Distribution Width 13.6 % (11.6-14.8); White Blood Cell Count 7.6 X10^3/uL (4.5-11.0)
[2020-12-30 08:55] LABS: Erythrocyte Sedimentation Rate 4 MM/HR (0-15)
[2020-12-30 09:13] LABS: Alanine Aminotransferase 38 IU/L (<50); Albumin 4.4 g/dL (3.5-5.0); Albumin Globulin Ratio 1.5 (1.0-2.8); Alkaline Phosphatase 72 U/L (38-126); Aspartate Aminotransferase 39 IU/L (17-59); BUN Creatinine Ratio 15.9 (6-22); Bilirubin Total 0.6 mg/dL (0.2-1.3); Blood Urea Nitrogen 14 mg/dL (9-20); C-Reactive Protein Quant 1.9 mg/dL (<1.0); Calcium 9.5 mg/dL (8.4-10.2); Carbon Dioxide 28 mmol/L (22-32); Chloride 101 mmol/L (98-107); Estimated Glomerular Filt Rate > 60.0 mL/min (>60); Globulin 2.9 g/dL (1.7-4.1); Glucose 93 mg/dL (70-100); HEMOLYSIS < 15 (0-50); Potassium 4.1 mmol/L (3.4-5.1); Sodium 139 mmol/L (137-145); Total Protein 7.3 g/dL (6.3-8.2); Uric Acid 9.1 mg/dL (3.5-8.5)
== END ==
PROVIDERS: PCP Family Medicine; Referring Provider Physician Assistant Medical; Visit Provider Physician Assistant Medical
DX: M54.9 Dorsalgia, unspecified (principal)
CPT/HCPCS: 36415; 80053; 84550; 85025; 85651; 86140

== ENCOUNTER → 2021-04-05 10:08 | Outpatient (CLI) | payer OTHER, SELFPAY ==
[2021-04-05 11:59] LABS: Influenza A - CEPHEID Flu A NEGATIVE (NEGATIVE); Influenza B - CEPHEID Flu B NEGATIVE (NEGATIVE)
[2021-04-05 12:43] LABS: COVID19 -Nasal RAPID Negative (Negative)
== END ==
PROVIDERS: PCP Family Medicine; Referring Provider Nurse Practitioner Family; Visit Provider Nurse Practitioner Family
DX: Z20.822 Contact with and (suspected) exposure to COVID-19 (principal); R68.89 Other general symptoms and signs
CPT/HCPCS: 87502; 87635

== ENCOUNTER 2021-07-26 18:12 | Emergency (ER) | payer OTHER, SELFPAY ==
[2021-07-26 18:21] VITALS: BP 177/98; PULSE 77; RESP 16; TEMP 36.5; O2SAT 97; BMI 33.9
[2021-07-26 19:44] LABS: Bacteria Urine None Seen; Culture Indicated Urine Cult Not Indicated; RBC Urine 5-10/HPF (0-5/HPF); Squamous Epithelial Cell Urine None Seen (0-5/HPF); WBC Urine None Seen (0-5/HPF)
--- NOTE | 2021-07-26 20:01 | DI.CT.S_ITS ---
PROCEDURE: CT KIDNEY URETER BLADDER (KUB) INDICATIONS: flank pain, suspect stone TECHNIQUE: Axial sections were acquired from the lung bases to the pubic symphysis. Coronal and sagittal reformats were performed. For radiation dose reduction, the following was used: automated exposure control, adjustment of mA and/or kV according to patient size. COMPARISON: [facility], CT, KUB - CT (PNL), 03/23/2014, 8:48. FINDINGS: Image quality: Excellent. Lung bases: There is mild atelectasis in the lung bases. Heart: Heart is normal in size. URINARY: Right Kidney and Ureter: There is an obstructing urinary stone at the right ureterovesicular junction extending into the bladder. This measures up to 1.1 cm in dimension and demonstrates attenuation values of approximately 700-800 Hounsfield units. There is associated mild to moderate right hydroureteronephrosis with perinephric and periureteral fat stranding. There are 2 additional nonobstructing right renal stones, with the largest stone measuring up to 0.4 cm. Left Kidney and Ureter: No stones or hydronephrosis. No hydroureter. There is an exophytic left renal cyst. Bladder: Normal wall thickness. No stones. ABDOMEN: Liver: Noncontrast evaluation of the liver demonstrates no discrete mass. Gallbladder: Within normal limits without calcified gallstones. Biliary ducts: No biliary ductal dilatation. Pancreas: Unremarkable. Spleen: Normal in size. Adrenal Glands: No adrenal nodules. Stomach and Bowel: Stomach, small bowel loops, and colon are normal in caliber and wall thickness. The appendix is normal in appearance. There is colonic diverticulosis without acute diverticulitis. Peritoneum: No abnormal intraperitoneal fluid. No free air. Ventral Wall: No hernia. Abdominal Nodes: No retroperitoneal or mesenteric adenopathy by size criteria. Vessels: Aorta and inferior vena cava are normal in size. PELVIS: Pelvic Organs: Unremarkable. Pelvic Nodes: No enlarged lymph nodes. Miscellaneous: No inguinal hernias identified. Bones: Visualized osseous structures demonstrate no suspicious focal lesions. There is mild superior endplate scalloping of the T10 vertebral body redemonstrated. IMPRESSION: 1. Obstructing urinary stone at the right UVJ with mild to moderate right hydroureteronephrosis. 2. Additional nonobstructing right renal stones as described. Dictated by: Geovani Feliciano M.D. on 07/26/2021 at 20:30 Approved by: Geovani Feliciano M.D. on 07/26/2021 at 20:34
[2021-07-26 20:14] LABS: Add Manual Diff / Slide Review NO; Basophils Absolute Auto 100 /uL (0-100); Basophils Percent Auto 0.8 % (0-2); Eosinophils Absolute Auto 400 /uL (0-450); Eosinophils Percent Auto 3.6 % (2-4); Hematocrit 44.6 % (41-53); Hemoglobin 15.6 g/dL (13.5-17.5); Lymphocytes Absolute Auto 1700 /uL (1100-4500); Lymphocytes Percent Auto 16.5 % (25-40); Mean Corpuscular HGB Conc 34.9 % (30-36); Mean Corpuscular Hemoglobin 31.5 PG (26-34); Mean Corpuscular Volume 90.4 fL (80-100); Monocytes Absolute Auto 1200 /uL (0-900); Monocytes Percent Auto 11.8 % (3-14); Neutrophils Absolute Auto 6900 /uL (1500-7000); Neutrophils Percent Auto 67.3 % (50-75); Platelet Count 248 X10^3/uL (150-400); Red Blood Cell Count 4.94 X10^6/uL (4.5-5.9); Red Cell Distribution Width 13.4 % (11.6-14.8); White Blood Cell Count 10.3 X10^3/uL (4.5-11.0)
[2021-07-26] MEDS: KETOROLAC 30 MG/ML VIAL 15 MG IV (20:14)
[2021-07-26] MEDS: SODIUM CHLORIDE 0.9% 1,000 ML 1000 ML IV ×2 (20:14→22:52)
[2021-07-26 20:19] LABS: Alanine Aminotransferase 90 IU/L (<50); Albumin 4.7 g/dL (3.5-5.0); Albumin Globulin Ratio 1.5 (1.0-2.8); Alkaline Phosphatase 79 U/L (38-126); Aspartate Aminotransferase 89 IU/L (17-59); BUN Creatinine Ratio 16.5 (6-22); Bilirubin Total 0.5 mg/dL (0.2-1.3); Blood Urea Nitrogen 26 mg/dL (9-20); Calcium 9.3 mg/dL (8.4-10.2); Carbon Dioxide 31 mmol/L (22-32); Chloride 103 mmol/L (98-107); Estimated Glomerular Filt Rate 55 mL/min (>60); Globulin 3.2 g/dL (1.7-4.1); Glucose 106 mg/dL (70-100); HEMOLYSIS 19 (0-50); Potassium 4.3 mmol/L (3.4-5.1); Sodium 140 mmol/L (137-145); Total Protein 7.9 g/dL (6.3-8.2)
--- NOTE | 2021-07-26 22:43 | ED_ITS ---
HPI - General Adult General Chief complaint: Urogenital-Male Stated complaint: Rt Lower Back Pain Time Seen by Provider: 07/26/21 20:01 Source: patient Mode of arrival: Ambulatory History of Present Illness HPI narrative: 45-year-old gentleman with a diagnosis of rheumatoid arthritis currently on Cosentyx monthly history of a kidney stone approximately 7 years ago presents with right flank pain that is been worse since approximately noon today. He tried some ibuprofen earlier that dulled the pain a bit but by dinnertime he found that he was so uncomfortable that he came to the emergency department for help with pain control. He is not noticing fevers, chills, vomiting, abdominal pain. He has chronic diarrhea from his Cosentyx. He has not had hematuria, dysuria or urgency. No cough or palpitations. Related Data Previous Rx's Medication Instructions Recorded clindamycin HCl 300 mg capsule 300 mg PO QID #28 cap 08/15/20 oxycodone-acetaminophen 5 mg-325 1 tab PO Q6H PRN #14 tab 07/27/21 mg tablet tamsulosin 0.4 mg capsule (Flomax) 0.4 mg PO DAILY #30 cap 07/27/21 Allergies Allergy/AdvReac Type Severity Reaction Status Date / Time No Known Drug Allergies Allergy Verified 04/05/21 09:58 Review of Systems Review of Systems Narrative: Remainder of complete review of systems is otherwise unremarkable except for that included in the HPI. Patient History Medical History (Updated 07/27/21 @ 00:38 by Hannah Murcia MD) Kidney stones Rheumatoid arthritis Social History Smoking Status: Never smoker Smoking Status: Never smoker alcohol intake frequency: 0-2 drinks per day Substance Use Type: does not use Exam Initial Vital Signs Initial Vital Signs: Vital Signs Temperature 97.7 F 07/26/21 18:21 Pulse Rate 77 07/26/21 18:21 Respiratory Rate 16 07/26/21 18:21 Blood Pressure 177/98 H 07/26/21 18:21 Pulse Oximetry 97 07/26/21 18:21 General: Healthy appearing, in no acute distress. Able to give a complete and coherent history. Well-nourished well-developed HEENT: Moist mucous membranes, normal sclera with reactive pupils, Neck: No JVD, supple Respiratory: Lungs are clear to auscultation, no wheezing no rales no rhonchi. Full and symmetrical air movement Cardiac: Regular rate and rhythm no murmurs no bruits Abdomen: Soft, nontender, good bowel tones, right flank pain Skin: Warm and dry, no rashes Neurologic: Grossly neurologically intact with no obvious asymmetries or abnormalities Extremities: No trauma, well perfused Psych: Cooperative, appropriate insight and affect Course Orders Ordered: ED Orders 07/26/21 19:55 Complete Blood Count AUTO DIFF Stat Comprehensive Metabolic Panel Stat 07/26/21 20:01 CT kidney ureter bladder (KUB) Stat 07/26/21 23:52 BMP [Basic Metabolic Panel] Stat Discontinued Medications Hydromorphone HCl (Hydromorphone 0.5 Mg Inj) 0.5 mg IV Q15MIN PRN PRN Reason: Pain, Last Admin: 07/26/21 22:47 Dose: 0.5 mg Documented by: [email or web address] Sodium Chloride (Normal Saline 0.9%) 1,000 mls @ 1,000 mls/hr IV BOLUS ONE Stop: 07/26/21 21:00 Last Infusion: 07/26/21 22:34 Dose: 0 mls/hr Documented by: Admin: 07/26/21 20:14 Dose: 1,000 mls/hr Documented by: ALANA Sodium Chloride (Normal Saline 0.9%) 1,000 mls @ 1,000 mls/hr IV BOLUS ONE Stop: 07/26/21 23:50 Last Infusion: 07/27/21 00:45 Dose: 0 mls/hr Documented by: Admin: 07/26/21 22:52 Dose: 1,000 mls/hr Documented by: [email or web address] Sodium Chloride (Normal Saline 0.9%) 1,000 mls @ 1,000 mls/hr IV BOLUS ONE Stop: 07/26/21 23:51 Ketorolac Tromethamine (Ketorolac 30 Mg/Ml Vial) 15 mg IV NOW ONE Stop: 07/26/21 20:02 Last Admin: 07/26/21 20:14 Dose: 15 mg Documented by: ALANA Oxycodone/Acetaminophen (Oxycodone/Acetaminophen 5/325 Tablet) 1 tab PO NOW ONE Stop: 07/26/21 22:53 Last Admin: 07/26/21 23:38 Dose: 1 tab Documented by: ALANA Oxycodone/Acetaminophen (Oxycodone/Apap 5/325 Prepack) 1 bottle MISC SEEINSTR ONE Stop: 07/26/21 22:53 Last Admin: 07/26/21 23:37 Dose: 1 bottle Documented by: ALANA Tamsulosin HCl (Tamsulosin 0.4 Mg Capsule) 0.4 mg PO NOW ONE Stop: 07/26/21 22:53 Last Admin: 07/26/21 23:37 Dose: 0.4 mg Documented by: ALANA Vital Signs Vital signs: Vital Signs - 8 hr 07/26/21 22:56 07/27/21 01:00 Pulse Rate 75 68 Respiratory Rate 20 14 Blood Pressure 146/90 H 142/86 H Pulse Oximetry 95 98 Medical Decision Making Lab Data Result diagrams: 07/26/21 19:55 07/26/21 23:52 Labs: Lab Results 07/26/21 07/26/21 07/26/21 Range/Units 18:25 19:55 19:55 WBC 10.3 (4.5-11.0) X10^3/uL RBC 4.94 (4.5-5.9) X10^6/uL Hgb 15.6 (13.5-17.5) g/dL Hct 44.6 (41-53) % MCV 90.4 (80-100) fL MCH 31.5 (26-34) PG MCHC 34.9 (30-36) % RDW 13.4 (11.6-14.8) % Plt Count 248 (150-400) X10^3/uL Neut % (Auto) 67.3 (50-75) % Lymph % (Auto) 16.5 L (25-40) % [place] % (Auto) 11.8 (3-14) % Eos % (Auto) 3.6 (2-4) % Baso % (Auto) 0.8 (0-2) % Neut # (Auto) 6900 (1642-5970) /uL Lymph # (Auto) 1700 (1147-8977) /uL [place] # (Auto) 1200 H (0-900) /uL Eos # (Auto) 400 (0-450) /uL Baso # (Auto) 100 (0-100) /uL Sodium 140 (137-145) mmol/L Potassium 4.3 (3.4-5.1) mmol/L Chloride 103 (98-107) mmol/L Carbon Dioxide 31 (22-32) mmol/L BUN 26 H (9-20) mg/dL Creatinine 1.58 H (0.66-1.25) mg/dL Estimated GFR 55 L (>60) mL/min BUN/Creatinine Ratio 16.5 (6-22) Glucose 106 H (70-100) mg/dL Calcium 9.3 (8.4-10.2) mg/dL Total Bilirubin 0.5 (0.2-1.3) mg/dL AST 89 H (17-59) IU/L ALT 90 H (<50) IU/L Alkaline Phosphatase 79 (38-126) U/L Total Protein 7.9 (6.3-8.2) g/dL Albumin 4.7 (3.5-5.0) g/dL Globulin 3.2 (1.7-4.1) g/dL Albumin/Globulin Ratio 1.5 (1.0-2.8) Urine RBC 5-10/hpf H (0-5/HPF) Urine WBC None seen (0-5/HPF) Ur Squamous Epith Cells None seen (0-5/HPF) Urine Bacteria None seen (None) Ur Culture Indicated? Cult not indicated 07/26/21 Range/Units 23:52 WBC (4.5-11.0) X10^3/uL RBC (4.5-5.9) X10^6/uL Hgb (13.5-17.5) g/dL Hct (41-53) % MCV (80-100) fL MCH (26-34) PG MCHC (30-36) % RDW (11.6-14.8) % Plt Count (150-400) X10^3/uL Neut % (Auto) (50-75) % Lymph % (Auto) (25-40) % [place] % (Auto) (3-14) % Eos % (Auto) (2-4) % Baso % (Auto) (0-2) % Neut # (Auto) (9471-4124) /uL Lymph # (Auto) (4665-5244) /uL [place] # (Auto) (0-900) /uL Eos # (Auto) (0-450) /uL Baso # (Auto) (0-100) /uL Sodium 140 (137-145) mmol/L Potassium 4.1 (3.4-5.1) mmol/L Chloride 106 (98-107) mmol/L Carbon Dioxide 26 (22-32) mmol/L BUN 23 H (9-20) mg/dL Creatinine 1.49 H (0.66-1.25) mg/dL Estimated GFR 59 L (>60) mL/min BUN/Creatinine Ratio 15.4 (6-22) Glucose 105 H (70-100) mg/dL Calcium 8.2 L (8.4-10.2) mg/dL Total Bilirubin (0.2-1.3) mg/dL AST (17-59) IU/L ALT (<50) IU/L Alkaline Phosphatase (38-126) U/L Total Protein (6.3-8.2) g/dL Albumin (3.5-5.0) g/dL Globulin (1.7-4.1) g/dL Albumin/Globulin Ratio (1.0-2.8) Urine RBC (0-5/HPF) Urine WBC (0-5/HPF) Ur Squamous Epith Cells (0-5/HPF) Urine Bacteria (None) Ur Culture Indicated? Urine Dip Bedside Urine Glucose Negative Bedside Urine Bilirubin - Negative Bedside Urine Ketone - Negative Urine Specific [place] 1.015 Bedside Urine Occult Blood +++ Bedside Urine pH 7.0 Bedside Urine Protein +/- 15 Bedside Urine Urobilinogen - Negative Bedside Urine Nitrite - Negative Bedside Urine Leukocytes - Negative Esterase Point of care testing: Urine Dip Bedside Urine Glucose Negative Bedside Urine Bilirubin - Negative Bedside Urine Ketone - Negative Urine Specific [place] 1.015 Bedside Urine Occult Blood +++ Bedside Urine pH 7.0 Bedside Urine Protein +/- 15 Bedside Urine Urobilinogen - Negative Bedside Urine Nitrite - Negative Bedside Urine Leukocytes - Negative Esterase Imaging Data CT scan - abdomen/pelvis: Radiologist's Impression: FINDINGS:? Image quality:? Excellent.? ? Lung bases:? There is mild atelectasis in the lung bases. Heart:? Heart is normal in size. ? URINARY: Right Kidney and Ureter: ? There is an obstructing urinary stone at the right ureterovesicular junction extending into the bladder.? This measures up to 1.1 cm in dimension and demonstrates attenuation values of approximately 700-800 Hounsf ield units.? There is associated mild to moderate right hydroureteronephrosis with perinephric and periureteral fat stranding.? There are 2 additional nonobstructing right renal stones, with the largest stone measuring up to 0.4 cm. ? Left Kidney and Ureter: ? No stones or hydronephrosis.? No hydroureter.? There is an exophytic left renal cyst. ? Bladder:? Normal wall thickness. No stones. ? ? ? ABDOMEN: Liver:? Noncontrast evaluation of the liver demonstrates no discrete? mass. Gallbladder:? Within normal limits without calcified gallstones.? ? Biliary ducts:? No biliary ductal dilatation.? ? Pancreas:? Unremarkable.? ? Spleen:? Normal in size.? ? Adrenal Glands:? No adrenal nodules.? ? ? Stomach and Bowel:? Stomach, small bowel loops, and colon are normal in caliber and wall thickness.? The appendix is normal in appearance.? There is colonic diverticulosis without acute diverticulitis. Peritoneum:? No abnormal intraperitoneal fluid.? No free air.? ? Ventral Wall: ? No hernia.? Abdominal Nodes:? No retroperitoneal or mesenteric adenopathy by size criteria.? Vessels:? Aorta and inferior vena cava are normal in size.? ? PELVIS: Pelvic Organs:? Unremarkable.? ? Pelvic Nodes: No enlarged lymph nodes.? Miscellaneous: No inguinal hernias identified. ? ? ? Bones:? Visualized osseous structures demonstrate no suspicious focal lesions.? There is mild superior endplate scalloping of the T10 vertebral body redemonstrated. IMPRESSION:? ? 1.? Obstructing urinary stone at the right UVJ with mild to moderate right hydroureteronephrosis. ? 2. Additional nonobstructing right renal stones as described.? ? ? Dictated by: Geovani Feliciano M.D. on 07/26/2021 at 20:30? ?? [facility] Narrative Medical decision making narrative: Gentleman with right flank pain for last 6-[address] scan confirms right obstructing urinary stone at the ureterovesical junction measuring 1.1 cm. He does have mild acute kidney injury with prior creatinines in the 0.7-0.9 range in today at 1.5. Pain was initially controlled with Toradol, he was given a L of fluid however within an hour and half pain is actually back if not worse than prior to arrival. An additional L of fluid, Dilaudid and Flomax are all administered. With the 1.1 cm stone obstructing, the mild acute kidney injury care we reviewed with Urology as outpatient follow-up will be needed. 11:40pm Dr Moses, Urology at . Agrees with rechecking BMP after the 2 L of fluid resuscitation. In light of the fact that he does have 2 functioning kidneys and is able to eat and drink she does not feel that acute hospitalization will be likely due to the renal issue. Given the size of the stone chance of a passing without intervention are low. Will need outpatient follow-up with Urology within the next 2-7 days. Reviewed all of this with patient. Pain is adequately controlled this point. BNP is being repeated now. Discharge Plan Departure Patient Disposition: Home Clinical Impression: Kidney stone on right side, Acute kidney injury Instructions: DI for Kidney Stones Activity Restrictions/Additional Instructions: Thank you for coming in this evening You have a 1.1 cm stone on the right side. This is what is causing her pain. This may be too large to pass completely on its own. Using 400 mg of ibuprofen (2 tibg-hws-mhvzirs pills) and 1 Tylenol every 6 hours can be very helpful in controlling pain. For severe pain you can use 400 mg of ibuprofen and 1 Percocet. Percocet is a narcotic and can cause constipation. You also had a slight increase in your creatinine suggesting chronic dehydration. It may be that the diarrhea from your Cosentyx is contributing to that. You need to make a point of make sure that you are staying exceptionally well hydrated. I have given you a prescription for Flomax. This can help larger stones pass. I would encourage you to continue this until you either passed the stone or talk with the urologist. Prescriptions have been electronically transmitted to [facility] in [place] You do need to follow-up with a urologist.? You can contact the urology office at [facility] at [phone].? Please explain that you are in the emergency department with a kidney stone, is a 1.1 cm stone and you need a follow-up appointment. If they are unable to help, you can try [facility] in [place]. There is a urology group in [place] and a urology group in [place] as well. If you have worsening pain, developed significant fevers, it feels that your developing a bladder infection or having pain with urinating, you need to come back to the emergency room for further evaluation. Prescriptions: New tamsulosin [Flomax] 0.4 mg capsule 0.4 mg PO DAILY Qty: 30 0RF oxycodone-acetaminophen 5-325 mg tablet 1 tab PO Q6H PRN (Reason: pain) Qty: 14 0RF No Action clindamycin HCl 300 mg capsule 300 mg PO QID Qty: 28 0RF Referrals: Emerald Rosa MD [Primary Care Provider] -
[2021-07-26] MEDS: HYDROMORPHONE 0.5 MG INJ IV (22:47)
[2021-07-26 22:56] VITALS: BP 146/90; PULSE 75; RESP 20; O2SAT 95
--- NOTE | 2021-07-26 23:06 | PC.NURSE ---
Pt reported an increase in pain, stating it was worse than when he came in. Pt given medications per MAR for pain.
[2021-07-26] MEDS: TAMSULOSIN 0.4 MG CAPSULE PO (23:37)
[2021-07-26] MEDS: OXYCODONE/APAP 5/325 PREPACK 1 BOTTLE MISC (23:37)
[2021-07-26] MEDS: OXYCODONE/ACETAMINOPHEN 5/325 TABLET 1 TAB PO (23:38)
[2021-07-27 00:07] LABS: BUN Creatinine Ratio 15.4 (6-22); Blood Urea Nitrogen 23 mg/dL (9-20); Calcium 8.2 mg/dL (8.4-10.2); Carbon Dioxide 26 mmol/L (22-32); Chloride 106 mmol/L (98-107); Estimated Glomerular Filt Rate 59 mL/min (>60); Glucose 105 mg/dL (70-100); HEMOLYSIS < 15 (0-50); Potassium 4.1 mmol/L (3.4-5.1); Sodium 140 mmol/L (137-145)
[2021-07-27 01:00] VITALS: BP 142/86; PULSE 68; RESP 14; O2SAT 98
== END 2021-07-27 01:01 | disposition home or self-care (01) ==
PROVIDERS: Emergency Provider Emergency Medicine; PCP Family Medicine
DX: N20.0 Calculus of kidney (principal); N17.9 Acute kidney failure, unspecified; Z87.442 Personal history of urinary calculi
CPT/HCPCS: 36415; 74176; 80048; 80053; 81003; 81015; 85025; 96374; 96375; 99284; J1170; J1885

== ENCOUNTER → 2021-07-31 16:40 | Outpatient (CLI) | payer OTHER, SELFPAY ==
[2021-07-31 17:15] LABS: COVID19 -Nasal RAPID POSITIVE (Negative)
== END ==
PROVIDERS: PCP Family Medicine; Visit Provider Specialist
DX: U07.1 COVID-19 (principal); N17.9 Acute kidney failure, unspecified; N20.1 Calculus of ureter; Z87.442 Personal history of urinary calculi
CPT/HCPCS: 81002; 87635

== ENCOUNTER 2021-08-01 16:30 | Day surgery (SDC) | payer OTHER, SELFPAY ==
[2021-08-01] VITALS (8 sets, daily range): BP systolic 106–154; BP diastolic 73–101; PULSE 57–75; RESP 15–16; TEMP 36.6–36.7; O2SAT 94–97; BMI 34.8
--- NOTE | 2021-08-01 | DI.RAD.S_ITS ---
PROCEDURE: XR KUB INDICATIONS: Right ureterovesical junction calculus TECHNIQUE: One view of the abdomen acquired. COMPARISON: [facility], CT, CT KIDNEY URETER BLADDER (KUB), 07/26/2021, 20:06. FINDINGS: Surgical changes and devices: None. Bowel: Bowel gas pattern is normal. Soft tissues: No suspicious abdominal calcifications. Calcification is noted overlying the right renal shadow. Calcification is also noted overlying the right ureterovesicular junction at the site of recent calcification on 07/26/2021 CT. Visualized solid organ contours appear normal in size. Bones: No suspicious bony lesions. IMPRESSION: Unchanged appearance of calcifications overlying the right renal shadow and ureterovesicular junction. Dictated by: Destinee Mccurdy M.D. on 08/01/2021 at 19:33 Approved by: Destinee Mccurdy M.D. on 08/01/2021 at 19:35
[2021-08-01] MEDS: LACTATED RINGERS 1,000 ML 42 ML IV (18:41)
--- NOTE | 2021-08-01 19:57 | SUR.OPER ---
Lithotomy on padded OR bed, head on pillow, arms secured on padded arm boards at <90 degrees abduction. Safety strap across abdomen. Legs secured in padded yellow fins stirrups. Directed and approved by surgeon
[2021-08-01] MEDS: BELLADONNA/OPIUM SUPPOSITORIES 1 EACH PR (20:31)
--- NOTE | 2021-08-01 20:40 | P.OP_ITS ---
Operative Date/Time/Diagnoses Date of procedure: 08/01/21 Time of procedure: 20:40 Pre-op diagnosis: 1. Obstructing 1.1 cm right ureterovesical junction calculus. 2. Intractable right renal colic. Post-op diagnosis: same Procedure & Clinicians Procedure: 1. Cystoscopy/right ureteroscopic laser lithotripsy. 2. Cystoscopy/right ureteral dilation. Same procedure as scheduled: Yes Indications: 1. Obstructing 1.1 cm right ureterovesical junction calculus. 2. Intractable right renal colic. Surgeon: Mahnaz Grier Click Yes if Unassisted: Yes Anesthesia Type: General Operative Notes Findings: 1. Urethra-normal caliber without annular stricture or lesion. 2. External sphincter-coapted with normal overlying urothelium. 3. Prostate 3-3.5 cm length with mild lateral lobar hyperplasia. 4. Right ureter-the right intramural ureter was edematous with obvious mass effect. Through a patulous right ureteral orifice the distal margin of the stone could be seen approximately 1/2 cm proximal. Meatotomy and extraction was not performed. See below. Closure Type: not applicable Specimen(s): other (Stone fragments-right distal ureter) Estimated Blood Loss (mL): 0 Blood products transfused: none Procedure in detail: The patient was brought to the operating room under patient COVID positive protocol. The patient was positioned supine was administered general anesthesia. The patient was then repositioned in semi lithotomy and the lower abdomen, genitalia, and groin were then prepped and draped in sterile fashion. Twenty-two Uzbek panendoscope was then passed and lower urinary tract with the findings as described above. Panendoscope was then removed and the semi rigid ureteral scope was advanced lower urinary track and then was carefully insinuated into the patulous right ureteral orifice a 200 micron laser was then requested. All operating personnel and patient were fitted with laser safety eyewear. Lithotripsy was then commenced with excellent resultant stone fragmentation. The vast majority of stone fragments and dust were removed from the distal ureteral segment using a combination of hydrostatic and mechanical forces. Next, a 0.35 hybrid guidewire was advanced through the working channel of the scope and advanced into the right ureter under direct and fluoroscopic guidance. Over this a 15 Uzbek 6 cm balloon dilating catheter was advanced over the wire and positioned across the right ureterovesical junction and intra ureter. The balloon was then inflated to 18 atmospheres for 5 minutes. The balloon was then deflated and the wire and dilating balloon were then removed in their entirety. The bladder was then filled and emptied several times to obtained a sizable amount of the fragmented stone for submission to the laboratory for analysis. The bladder is then drained completely and all instrumentation was removed. The patient was then repositioned in supine, was awakened, and recovered in the operating room per positive COVID patient protocol. Complications: none Post-operative Condition: stable Disposition: PACU Plan for aftercare: Discharge home
[2021-08-09 07:39] LABS: Ca oxalate dihydrate 50 % (.); Ca oxalate monohydr 45 % (.); Hydroxyapatite 5 % (.)
== END 2021-08-01 21:25 | disposition home or self-care (01) ==
PROVIDERS: PCP Physician Assistant Medical; Referring Provider Specialist; Visit Provider Specialist
PROC: 0TF68ZZ Fragmentation in Right Ureter, Via Natural or Artificial Opening Endoscopic (ICD-10-PCS; CPT 52353; principal; 2021-08-01 18:00)
DX: N20.1 Calculus of ureter (principal); N40.0 Benign prostatic hyperplasia without lower urinary tract symptoms; U07.1 COVID-19; M06.9 Rheumatoid arthritis, unspecified
CPT/HCPCS: 52353; 74018; 82365; C1771; J1100; J1885; J2250; J2405; J2704; J3010

== ENCOUNTER → 2021-10-17 14:03 | Outpatient (CLI) | payer OTHER, SELFPAY ==
[2021-10-17 16:10] LABS: Add Manual Diff / Slide Review NO; Basophils Absolute Auto 0 /uL (0-100); Basophils Percent Auto 0.7 % (0-2); Eosinophils Absolute Auto 400 /uL (0-450); Eosinophils Percent Auto 5.5 % (2-4); Hematocrit 42.9 % (41-53); Hemoglobin 14.9 g/dL (13.5-17.5); Lymphocytes Absolute Auto 1500 /uL (1100-4500); Lymphocytes Percent Auto 22.8 % (25-40); Mean Corpuscular HGB Conc 34.8 % (30-36); Mean Corpuscular Hemoglobin 31.5 PG (26-34); Mean Corpuscular Volume 90.5 fL (80-100); Monocytes Absolute Auto 700 /uL (0-900); Neutrophils Absolute Auto 3900 /uL (1500-7000); Platelet Count 245 X10^3/uL (150-400); Red Blood Cell Count 4.74 X10^6/uL (4.5-5.9); Red Cell Distribution Width 13.2 % (11.6-14.8); White Blood Cell Count 6.4 X10^3/uL (4.5-11.0)
[2021-10-17 17:00] LABS: Erythrocyte Sedimentation Rate 4 MM/HR (0-15)
[2021-10-17 17:09] LABS: Alanine Aminotransferase 56 IU/L (<50); Albumin 4.3 g/dL (3.5-5.0); Albumin Globulin Ratio 1.4 (1.0-2.8); Alkaline Phosphatase 75 U/L (38-126); Aspartate Aminotransferase 50 IU/L (17-59); BUN Creatinine Ratio 16.7 (6-22); Bilirubin Total 0.4 mg/dL (0.2-1.3); Blood Urea Nitrogen 16 mg/dL (9-20); Calcium 9.2 mg/dL (8.4-10.2); Carbon Dioxide 32 mmol/L (22-32); Chloride 102 mmol/L (98-107); Estimated Glomerular Filt Rate > 60 mL/min (>60); Globulin 3.1 g/dL (1.7-4.1); Glucose 75 mg/dL (70-100); HEMOLYSIS 37 (0-50); Potassium 4.4 mmol/L (3.4-5.1); Sodium 142 mmol/L (137-145); Total Protein 7.4 g/dL (6.3-8.2); Uric Acid 7.7 mg/dL (3.5-8.5)
== END ==
PROVIDERS: PCP Physician Assistant Medical; Referring Provider Physician Assistant Medical; Visit Provider Physician Assistant Medical
DX: M45.9 Ankylosing spondylitis of unspecified sites in spine (principal); E79.0 Hyperuricemia without signs of inflammatory arthritis and tophaceous disease
CPT/HCPCS: 36415; 80053; 84550; 85025; 85651; 86140

== ENCOUNTER 2022-01-19 18:54 | Emergency (ER) | payer OTHER, SELFPAY ==
[2022-01-19 18:56] VITALS: BP 132/91; PULSE 82; RESP 18; TEMP 36.6; O2SAT 97
--- NOTE | 2022-01-19 19:04 | DI.RAD.S_ITS ---
PROCEDURE: XR CHEST 2V INDICATIONS: productive cough TECHNIQUE: 2 views of the chest were acquired. COMPARISON: [facility], CR, XR CHEST 2V, 03/01/2018, 19:33. FINDINGS: Surgical changes and devices: None. Lungs and pleura: Persistent thin curvilinear density projecting over the right mid lung zone likely representing atelectasis versus scarring. No acute airspace disease identified. No pleural effusions or pneumothorax. Mediastinum: Mediastinal contours are normal. Heart size is normal. Bones and chest wall: No suspicious bony abnormalities. Soft tissues appear unremarkable. IMPRESSION: Chest without acute cardiopulmonary abnormalities or focal airspace disease. Dictated by: Aureliano Richardson M.D. on 01/19/2022 at 19:53 Approved by: Aureliano Richardson M.D. on 01/19/2022 at 19:54
[2022-01-19 19:49] LABS: Influenza A - CEPHEID Flu A NEGATIVE (NEGATIVE); Influenza B - CEPHEID Flu B NEGATIVE (NEGATIVE); Respiratory Syncytial Virus Negative (Negative)
[2022-01-19 19:57] LABS: COVID-19 CEPHEID 4-PLEX PCR Negative (Negative)
[2022-01-19 20:28] LABS: Add Manual Diff / Slide Review NO; Basophils Absolute Auto 100 /uL (0-100); Basophils Percent Auto 1.1 % (0-2); Eosinophils Absolute Auto 500 /uL (0-450); Eosinophils Percent Auto 6.1 % (2-4); Hematocrit 45.5 % (41-53); Hemoglobin 15.4 g/dL (13.5-17.5); Lymphocytes Absolute Auto 1700 /uL (1100-4500); Lymphocytes Percent Auto 19.6 % (25-40); Mean Corpuscular HGB Conc 33.9 % (30-36); Mean Corpuscular Hemoglobin 30.9 PG (26-34); Mean Corpuscular Volume 91.1 fL (80-100); Monocytes Absolute Auto 1100 /uL (0-900); Monocytes Percent Auto 12.9 % (3-14); Neutrophils Absolute Auto 5100 /uL (1500-7000); Neutrophils Percent Auto 60.3 % (50-75); Platelet Count 237 X10^3/uL (150-400); Red Blood Cell Count 4.99 X10^6/uL (4.5-5.9); Red Cell Distribution Width 13.6 % (11.6-14.8); White Blood Cell Count 8.4 X10^3/uL (4.5-11.0)
[2022-01-19 20:30] VITALS: BP 141/79
[2022-01-19 20:31] VITALS: PULSE 74; RESP 28; O2SAT 96
[2022-01-19 20:41] LABS: Alanine Aminotransferase 84 IU/L (<50); Albumin 4.2 g/dL (3.5-5.0); Albumin Globulin Ratio 1.3 (1.0-2.8); Alkaline Phosphatase 74 U/L (38-126); Aspartate Aminotransferase 70 IU/L (17-59); BUN Creatinine Ratio 19.4 (6-22); Bilirubin Total 0.5 mg/dL (0.2-1.3); Blood Urea Nitrogen 18 mg/dL (9-20); Calcium 8.8 mg/dL (8.4-10.2); Carbon Dioxide 27 mmol/L (22-32); Chloride 102 mmol/L (98-107); Creatine Kinase 180 U/L (55-170); Estimated Glomerular Filt Rate > 60 mL/min (>60); Globulin 3.2 g/dL (1.7-4.1); Glucose 129 mg/dL (70-100); HEMOLYSIS 35 (0-50); Lipase 145 U/L (23-300); Potassium 3.8 mmol/L (3.4-5.1); Sodium 140 mmol/L (137-145); Total Protein 7.4 g/dL (6.3-8.2)
[2022-01-19 20:52] LABS: Troponin I < 0.012 ng/mL (0.01-0.034)
[2022-01-19 20:56] LABS: CKMB % Relative Index 0.9 % (1.5-5.0); Creatine Kinase MB 1.63 ng/mL (<2.37)
--- NOTE | 2022-01-19 21:44 | ED_ITS ---
HPI - General Adult General Chief complaint: Upper Respiratory Symptoms Stated complaint: SOB/Chest Pain/Body Aches Time Seen by Provider: 01/19/22 20:02 Source: patient Mode of arrival: Ambulatory History of Present Illness HPI narrative: 46-year-old male. Is here for evaluation of a couple days of shortness of breath and chest pain and body aches and sinus congestion. He states that earlier this evening and felt like he could not take a deep breath which was triggering a cough. He states that has improved. Has been doing some ov [id number] DayQuil without much improvement. Does have a history of rheumatoid arthritis. Related Data Home Medications Medication Instructions Recorded Confirmed secukinumab 150 mg/mL subcutaneous 300 mg SUBCUT Q4W 07/31/21 08/01/21 syringe (Cosentyx 300 mg/2 Syringes () Previous Rx's Medication Instructions Recorded tamsulosin 0.4 mg capsule (Flomax) 0.4 mg PO DAILY #30 caps 07/27/21 oxycodone 5 mg tablet 5 mg PO Q4H PRN pain #20 tabs 08/01/21 benzonatate 100 mg capsule 100 mg PO TID PRN cough #20 caps 01/19/22 Allergies Allergy/AdvReac Type Severity Reaction Status Date / Time No Known Drug Allergies Allergy Verified 08/01/21 18:16 Review of Systems Constitutional Constitutional: Reports system reviewed and no additional complaints, except as documented ENT Ears, Nose, Mouth, and Throat: Reports system reviewed and no additional complaints, except as documented Respiratory Respiratory: Reports system reviewed and no additional complaints, except as documented Integumentary/Breasts Skin/Breast: Reports system reviewed and no additional complaints, except as documented Hematologic/Lymphatic On Anticoagulants: No Allergic/Immunologic Allergic/Immunologic: Reports system reviewed and no additional complaints, except as documented Patient History Medical History COVID-19 virus infection (07/31/21) Kidney stones Rheumatoid arthritis Right ureteral calculus Surgical History (Updated 08/01/21 @ 18:14 by Sukh Kaplan RN) History of tonsillectomy Social History household members: spouse and children Smoking Status: Never smoker alcohol intake: never caffeine: Yes Type(s) of exercise: other frequency: 3-4 times per week Smoking Status: Never smoker alcohol intake frequency: 0-2 drinks per day Substance Use Type: does not use Exam Initial Vital Signs Initial Vital Signs: Vital Signs Temperature 97.9 F 01/19/22 18:56 Pulse Rate 82 01/19/22 18:56 Respiratory Rate 18 01/19/22 18:56 Blood Pressure 132/91 H 01/19/22 18:56 Pulse Oximetry 97 01/19/22 18:56 Oxygen Delivery Method 01/19/22 18:56 Const General: cooperative, comfortable, well developed and No ill appearing HENMT Head: normal to inspection and normocephalic Mouth: oral mucosae normal Throat: posterior oropharynx normal Resp Effort & Inspection: normal respiratory effort Auscultation: clear to auscultation bilaterally Cardio Rate: regular rate Rhythm: regular rhythm Skin General: no rashes or lesions noted Neuro General: patient alert, patient awake and moves all extremities Extrem General: normal to inspection and capillary refill normal Scores PERC Score Age greater than or equal to 50 years: No Heart rate greater than or equal to 100 bpm: No Room Air O2 Sat less than 95%: No Unilateral leg swelling: No Recent trauma or surgery: No Hemoptysis: No Prior PE or DVT: No Hormone Use: No Total PERC Score: 0 Course Orders Ordered: ED Orders 01/19/22 19:03 Covid-19 + FLU A/B + RSV - PCR Stat 01/19/22 19:04 XR chest 2V Stat 01/19/22 20:10 EKG-12 Lead Stat 01/19/22 20:20 Complete Blood Count AUTO DIFF Stat Comprehensive Metabolic Panel Stat Lipase Stat Troponin & CK Cardiac Panel Stat Vital Signs Vital signs: Vital Signs - 8 hr 01/19/22 20:30 01/19/22 20:31 Pulse Rate 74 Respiratory Rate 28 H Blood Pressure 141/79 H Pulse Oximetry 96 Medical Decision Making Lab Data Lab results reviewed: Yes I reviewed the patient's lab results. Result diagrams: 01/19/22 20:20 01/19/22 20:20 Labs: Lab Results 01/19/22 01/19/22 01/19/22 Range/Units 19:03 20:20 20:20 WBC 8.4 (4.5-11.0) X10^3/uL RBC 4.99 (4.5-5.9) X10^6/uL Hgb 15.4 (13.5-17.5) g/dL Hct 45.5 (41-53) % MCV 91.1 (80-100) fL MCH 30.9 (26-34) PG MCHC 33.9 (30-36) % RDW 13.6 (11.6-14.8) % Plt Count 237 (150-400) X10^3/uL Neut % (Auto) 60.3 (50-75) % Lymph % (Auto) 19.6 L (25-40) % [place] % (Auto) 12.9 (3-14) % Eos % (Auto) 6.1 H (2-4) % Baso % (Auto) 1.1 (0-2) % Neut # (Auto) 5100 (5796-1140) /uL Lymph # (Auto) 1700 (1382-3693) /uL [place] # (Auto) 1100 H (0-900) /uL Eos # (Auto) 500 H (0-450) /uL Baso # (Auto) 100 (0-100) /uL Sodium 140 (137-145) mmol/L Potassium 3.8 (3.4-5.1) mmol/L Chloride 102 (98-107) mmol/L Carbon Dioxide 27 (22-32) mmol/L BUN 18 (9-20) mg/dL Creatinine 0.93 (0.66-1.25) mg/dL Estimated GFR > 60 (>60) mL/min BUN/Creatinine Ratio 19.4 (6-22) Glucose 129 H (70-100) mg/dL Calcium 8.8 (8.4-10.2) mg/dL Total Bilirubin 0.5 (0.2-1.3) mg/dL AST 70 H (17-59) IU/L ALT 84 H (<50) IU/L Alkaline Phosphatase 74 (38-126) U/L Total Creatine Kinase 180 H (55-170) U/L CK-MB (CK-2) 1.63 (<2.37) ng/mL CK-MB (CK-2) Rel Index 0.9 L (1.5-5.0) % Troponin I < 0.012 (0.01-0.034) ng/mL Total Protein 7.4 (6.3-8.2) g/dL Albumin 4.2 (3.5-5.0) g/dL Globulin 3.2 (1.7-4.1) g/dL Albumin/Globulin Ratio 1.3 (1.0-2.8) Lipase 145 (23-300) U/L SARS-CoV-2 (PCR) Negative (Negative) Influenza A (RT-PCR) Flu a negative (NEGATIVE) Influenza B (RT-PCR) Flu b negative (NEGATIVE) RSV (PCR) Negative (Negative) Imaging Data Chest x-ray: Radiologist's Impression: [address] [address] XRay Report Signed Patient: Bj Pollard MR#: [id number] : 1975 Acct:[id number] Age/Sex: 46 / M Date of Service: 01/19/22 Loc: ED Accession Number: [id number] ?? Procedure: XR chest 2V Ordering Provider: Deshawn Gutierrez D.O. PROCEDURE:? XR CHEST 2V ? INDICATIONS:? productive cough ? TECHNIQUE:? 2 views of the chest were acquired.? ? COMPARISON:? Merged With [facility], CR, XR CHEST 2V, 03/01/2018, 19:33. ? FINDINGS:? ? Surgical changes and devices:? None.? ? Lungs and pleura:? Persistent thin curvilinear density projecting over the right mid lung zone likely representing atelectasis versus scarring.? No acute airspace disease identified.? No pleural effusions or pneumothorax.? ? Mediastinum:? Mediastinal contours are normal.? Heart size is normal.? ? Bones and chest wall:? No suspicious bony abnormalities.? Soft tissues appear unremarkable.? ? IMPRESSION:? Chest without acute cardiopulmonary abnormalities or focal airspace disease. ? ? Dictated by: Aureliano Richardson M.D. on 01/19/2022 at 19:53 ? ? Approved by: Aureliano Richardson M.D. on 01/19/2022 at 19:54? ECG Data Attestation: I personally reviewed and interpreted this ECG as follows: Interpretation: Sinus rhythm Ventricular rate is 74 Normal axis Normal QRS Normal QTC No ST T wave changes MDM Narrative Medical decision making narrative: Well-appearing. Workup here in the emergency department is unremarkable. Chest x-ray is negative. No indication for antibiotics. Has clear lungs. Not hypoxic. Will send home with Briana Baker to try to help with his cough. We discussed other [id number] cough and cold preparations. Also decongestants/antihistamines. He was given return precautions. He expressed understanding and agreement. Discharge Plan Departure Patient Disposition: Home Clinical Impression: Cough, Upper respiratory infection Instructions: Cough (Alternative Therapy), Cough Activity Restrictions/Additional Instructions: I do recommend that you continue to take all of your medications as directed. Be sure your staying hydrated. You can take Tylenol/ibuprofen. Return to the emergency department for any new or worsening symptoms. Prescriptions: New benzonatate 100 mg capsule 100 mg PO TID PRN (Reason: cough) Qty: 20 0RF No Action tamsulosin [Flomax] 0.4 mg capsule 0.4 mg PO DAILY Qty: 30 0RF oxycodone 5 mg tablet 5 mg PO Q4H PRN (Reason: pain) Qty: 20 0RF Cosentyx (2 Syringes) 150 mg/mL syringe 300 mg SUBCUT Q4W Rx Instructions: start 4 wks after last weekly dose;inject [id number] doses each in different thigh/upper arm/abdominal areas Referrals: Skylar Rosa PA-C [Primary Care Provider] - Visit Report Forms: Patient Portal/API
== END 2022-01-19 21:51 | disposition home or self-care (01) ==
PROVIDERS: Emergency Provider Emergency Medicine; PCP Physician Assistant Medical
DX: J06.9 Acute upper respiratory infection, unspecified (principal); R06.02 Shortness of breath; R05.9 Cough, unspecified; R07.9 Chest pain, unspecified; Z20.822 Contact with and (suspected) exposure to COVID-19
CPT/HCPCS: 0241U; 36415; 71046; 80053; 82550; 82553; 83690; 84484; 85025; 93005; 99284

== ENCOUNTER 2023-04-22 19:36 | Emergency (ER) | payer OTHER, SELFPAY ==
[2023-04-22] VITALS (8 sets, daily range): BP systolic 124–155; BP diastolic 65–95; PULSE 62–79; RESP 16–30; TEMP 36.7; O2SAT 93–97; BMI 32.5
--- NOTE | 2023-04-22 19:50 | DI.RAD.S_ITS ---
PROCEDURE: XR CHEST 1V INDICATIONS: chest pain TECHNIQUE: One view of the chest was acquired. COMPARISON: [facility], CR, XR CHEST 2V, 01/19/2022, 19:16. FINDINGS: Surgical changes and devices: None. Lungs and pleura: Lungs are clear. No pleural effusions or pneumothorax. Mediastinum: Mediastinal contours appear normal. Heart size is normal. Bones and chest wall: No suspicious bony lesions. Overlying soft tissues appear unremarkable. IMPRESSION: No acute cardiopulmonary abnormality is seen. Dictated by: Erin Sterling M.D. on 04/22/2023 at 22:06 Approved by: Erin Sterling M.D. on 04/22/2023 at 22:06
[2023-04-22 20:08] LABS: Add Manual Diff / Slide Review NO; Basophils Absolute Auto 100 /uL (0-100); Eosinophils Absolute Auto 400 /uL (0-450); Eosinophils Percent Auto 5.4 % (2-4); Hematocrit 45.2 % (41-53); Hemoglobin 15.8 g/dL (13.5-17.5); Lymphocytes Absolute Auto 2000 /uL (1100-4500); Lymphocytes Percent Auto 27.2 % (25-40); Mean Corpuscular Hemoglobin 32.1 PG (26-34); Mean Corpuscular Volume 91.8 fL (80-100); Monocytes Absolute Auto 700 /uL (0-900); Monocytes Percent Auto 8.9 % (3-14); Neutrophils Absolute Auto 4300 /uL (1500-7000); Neutrophils Percent Auto 57.5 % (50-75); Platelet Count 217 X10^3/uL (150-400); Red Blood Cell Count 4.93 X10^6/uL (4.5-5.9); Red Cell Distribution Width 13.2 % (11.6-14.8); White Blood Cell Count 7.4 X10^3/uL (4.5-11.0)
[2023-04-22 20:16] LABS: INR 1.1 (0.9-1.3); Prothrombin Time 12.8 SECONDS (9.4-12.5)
[2023-04-22 20:18] LABS: PTT Partial Thromboplastin Tim 38 SECONDS (25.1-36.5)
[2023-04-22 20:21] LABS: Alanine Aminotransferase 68 IU/L (<50); Albumin 4.6 g/dL (3.5-5.0); Albumin Globulin Ratio 1.4 (1.0-2.8); Alkaline Phosphatase 69 U/L (38-126); Aspartate Aminotransferase 61 IU/L (17-59); BUN Creatinine Ratio 19.7 (6-22); Bilirubin Total 0.7 mg/dL (0.2-1.3); Blood Urea Nitrogen 15 mg/dL (9-20); Calcium 9.4 mg/dL (8.4-10.2); Carbon Dioxide 28 mmol/L (22-32); Creatine Kinase 272 U/L (55-170); Estimated Glomerular Filt Rate > 60 mL/min (>60); Globulin 3.3 g/dL (1.7-4.1); Glucose 152 mg/dL (70-100); HEMOLYSIS < 15 (0-50); Lipase 142 U/L (23-300); Magnesium 1.8 mg/dL (1.6-2.3); Potassium 3.7 mmol/L (3.4-5.1); Sodium 140 mmol/L (137-145); Total Protein 7.9 g/dL (6.3-8.2)
--- NOTE | 2023-04-22 20:25 | DI.CT.S_ITS ---
PROCEDURE: CT HEAD/BRAIN WO CON INDICATIONS: Headaches, difficulty finding thoughts starting yesterday TECHNIQUE: Noncontrast 4.5 mm thick angled axial sections acquired from the foramen magnum to the vertex, with coronal and sagittal reformats. For radiation dose reduction, the following was used: automated exposure control, adjustment of mA and/or kV according to patient size. COMPARISON: None. FINDINGS: Image quality: Diagnostic. CSF spaces: Basal cisterns are patent. No extra-axial fluid collections. Ventricles are normal in size and shape. Brain: No midline shift. No intracranial masses or hemorrhage. Liu-white matter interface is normal. Skull and face: Calvarium and visualized facial bones are intact, without suspicious lesions. Sinuses: Visualized sinuses and mastoids are clear. IMPRESSION: No acute intracranial pathology. Dictated by: Erin Sterling M.D. on 04/22/2023 at 23:02 Approved by: Erin Sterling M.D. on 04/22/2023 at 23:04
[2023-04-22 20:32] LABS: Troponin I < 0.012 ng/mL (0.01-0.034)
[2023-04-22 20:45] LABS: Chloride 101 mmol/L (98-107)
--- NOTE | 2023-04-22 20:49 | ED.NEUROSD ---
HPI - Neuro Symptoms/Deficit General Chief Complaint: Neuro Symptoms/Deficit Stated Complaint: chest pain, difficulty remembering, sob Time Seen by Provider: 04/22/23 20:03 Source: patient Mode of arrival: Ambulatory History of Present Illness HPI Narrative: 47-year-old male with history of rheumatoid arthritis on monthly cosentyx (last injection 3 wks ago) presents by private vehicle from home for several weeks of intermittent fluttering chest pain, shortness of breath, brain fog. Patient states that symptoms seem to wax and wane, but today he had trouble even remembering his colleagues names and so decided to check into the emergency department for evaluation. Prior to these incidences this has never happened before. Has not seen his primary care physician for this matter. Denies numbness, weakness, tingling, syncope, other complaints at this time. On Anticoagulants: No Related Data Home Medications Medication Instructions Recorded Confirmed secukinumab 150 mg/mL subcutaneous 300 mg SUBCUT Q4W 07/31/21 08/01/21 syringe (Cosentyx 300 mg/2 Syringes () Previous Rx's Medication Instructions Recorded tamsulosin 0.4 mg capsule (Flomax) 0.4 mg PO DAILY #30 caps 07/27/21 oxycodone 5 mg tablet 5 mg PO Q4H PRN pain #20 tabs 08/01/21 benzonatate 100 mg capsule 100 mg PO TID PRN cough #20 caps 01/19/22 Allergies Allergy/AdvReac Type Severity Reaction Status Date / Time No Known Drug Allergies Allergy Verified 04/22/23 19:49 Review of Systems Review of Systems Narrative: Negative except as noted above Hematologic/Lymphatic On Anticoagulants: No Patient History Medical History COVID-19 virus infection (07/31/21) Right ureteral calculus Kidney stones Rheumatoid arthritis Surgical History History of tonsillectomy Social History household members: spouse and children Smoking Status: Never smoker alcohol intake: never caffeine: Yes Type(s) of exercise: other frequency: 3-4 times per week Smoking Status: Never smoker alcohol intake frequency: 0-2 drinks per day Substance Use Type: does not use Exam Initial Vital Signs Initial Vital Signs: Vital Signs Temperature 98.1 F 04/22/23 19:46 Pulse Rate 79 04/22/23 19:46 Respiratory Rate 16 04/22/23 19:46 Blood Pressure 155/95 H 04/22/23 19:46 Pulse Oximetry 97 04/22/23 19:46 Oxygen Delivery Method Room Air 04/22/23 19:46 Const: Awake, alert, no acute distress, nontoxic appearing Cardiac: regular rate, regular rhythm RESP: unlabored, clear bilaterally, no wheezing GI: Atraumatic, soft, nontender, nondistended, no rebound, no guarding MSK: Atraumatic, full range of motion, pulses equal Skin: Warm, Dry, intact, no rashes Neuro: AO x3, CN II-XII grossly intact, moves all extremities Psych: affect normal, mood normal, not suicidal, not homicidal Course Orders Ordered: ED Orders 04/22/23 19:50 XR chest 1V Stat EKG-12 Lead Stat 04/22/23 19:55 Complete Blood Count AUTO DIFF Stat Comprehensive Metabolic Panel Stat Lipase Stat Magnesium Stat PTT Partial Thromboplastin [place] Stat Prothrombin Time INR Stat Troponin & CK Cardiac Panel Stat 04/22/23 20:25 CT head/brain wo con Stat 04/22/23 20:49 TSH [Thyroid Stimulating Hormone] Stat Discontinued Medications Aspirin (Aspirin 81 Mg Chew Tab) 324 mg PO NOW ONE Stop: 04/22/23 19:51 Last Admin: 04/22/23 21:09 Dose: 324 mg Documented By: CEASAR Vital Signs Vital signs: Vital Signs - 8 hr 04/22/23 19:46 04/22/23 21:04 04/22/23 21:05 Temperature 98.1 F Pulse Rate 79 71 Respiratory Rate 16 30 H Blood Pressure 155/95 H 144/78 H Pulse Oximetry 97 95 Oxygen Delivery Method Room Air 04/22/23 21:30 04/22/23 21:30 04/22/23 22:00 Temperature Pulse Rate 71 68 Respiratory Rate 23 26 H Blood Pressure 144/79 H Pulse Oximetry 95 93 Oxygen Delivery Method 04/22/23 22:00 04/22/23 22:30 04/22/23 22:30 Temperature Pulse Rate 62 Respiratory Rate 22 Blood Pressure 124/65 137/74 Pulse Oximetry 94 Oxygen Delivery Method 04/22/23 23:00 04/22/23 23:00 04/22/23 23:17 Temperature Pulse Rate 65 69 Respiratory Rate 26 H 26 H Blood Pressure 139/77 Pulse Oximetry 93 95 Oxygen Delivery Method 04/22/23 23:17 Temperature Pulse Rate Respiratory Rate Blood Pressure 135/79 Pulse Oximetry Oxygen Delivery Method MDM - Neuro Symptoms/Deficit Lab Data 04/22/23 19:55 04/22/23 19:55 Labs: Lab Results 04/22/23 04/22/23 Range/Units 19:55 20:49 WBC 7.4 (4.5-11.0) X10^3/uL RBC 4.93 (4.5-5.9) X10^6/uL Hgb 15.8 (13.5-17.5) g/dL Hct 45.2 (41-53) % MCV 91.8 (80-100) fL MCH 32.1 (26-34) PG MCHC 35.0 (30-36) % RDW 13.2 (11.6-14.8) % Plt Count 217 (150-400) X10^3/uL Neut % (Auto) 57.5 (50-75) % Lymph % (Auto) 27.2 (25-40) % [place] % (Auto) 8.9 (3-14) % Eos % (Auto) 5.4 H (2-4) % Baso % (Auto) 1.0 (0-2) % Neut # (Auto) 4300 (1403-6012) /uL Lymph # (Auto) 2000 (8340-2154) /uL [place] # (Auto) 700 (0-900) /uL Eos # (Auto) 400 (0-450) /uL Baso # (Auto) 100 (0-100) /uL PT 12.8 H (9.4-12.5) SECONDS INR 1.1 (0.9-1.3) APTT 38 H (25.1-36.5) SECONDS Sodium 140 (137-145) mmol/L Potassium 3.7 (3.4-5.1) mmol/L Chloride 101 (98-107) mmol/L Carbon Dioxide 28 (22-32) mmol/L BUN 15 (9-20) mg/dL Creatinine 0.76 (0.66-1.25) mg/dL Estimated GFR > 60 (>60) mL/min BUN/Creatinine Ratio 19.7 (6-22) Glucose 152 H (70-100) mg/dL Calcium 9.4 (8.4-10.2) mg/dL Magnesium 1.8 (1.6-2.3) mg/dL Total Bilirubin 0.7 (0.2-1.3) mg/dL AST 61 H (17-59) IU/L ALT 68 H (<50) IU/L Alkaline Phosphatase 69 (38-126) U/L Total Creatine Kinase 272 H (55-170) U/L Troponin I < 0.012 (0.01-0.034) ng/mL Total Protein 7.9 (6.3-8.2) g/dL Albumin 4.6 (3.5-5.0) g/dL Globulin 3.3 (1.7-4.1) g/dL Albumin/Globulin Ratio 1.4 (1.0-2.8) Lipase 142 (23-300) U/L TSH 1.25 (0.47-4.68) uIU/mL ECG Data Interpretation: Normal sinus rhythm, rate 74 beats per minute. Normal axis, normal intervals, no ST T wave changes, no STEMI MDM Narrative Medical decision making narrative: Well-appearing patient with intermittent symptoms for several weeks. No focal neurologic deficit on exam. EKG is normal sinus rhythm without concerning ischemic findings. We will order additional laboratory work, CT imaging, chest x-ray. Laboratory work is reviewed, no acute abnormalities identified. There are no electrolyte derangements, normal creatinine, normal troponin, normal TSH, no evidence of infection. Chest x-ray negative for acute findings. CT of the brain shows no acute abnormalities. Uncertain etiology of patient's symptoms. Discussed all results of labs and imaging with patient and his at bedside. I recommended close PCP follow up for further investigation of what could be causing his symptoms. ED return precautions discussed at bedside. Patient expressed understanding of the plan and is in agreement at this time. All questions answered at the time of discharge. Discharge Plan Departure Patient Disposition: Home Clinical Impression: Chest pain, Brain fog, Palpitations Instructions: DI for Chest Pain, DI for Palpitations Prescriptions: No Action tamsulosin [Flomax] 0.4 mg capsule 0.4 mg PO DAILY Qty: 30 0RF oxycodone 5 mg tablet 5 mg PO Q4H PRN (Reason: pain) Qty: 20 0RF benzonatate 100 mg capsule 100 mg PO TID PRN (Reason: cough) Qty: 20 0RF Cosentyx (2 Syringes) 150 mg/mL syringe 300 mg SUBCUT Q4W Rx Instructions: start 4 wks after last weekly dose;inject [id number] doses each in different thigh/upper arm/abdominal areas Referrals: Skylar Rosa PA-C [Primary Care Provider] - Stand Alone Forms: Patient Portal/API
[2023-04-22] MEDS: ASPIRIN 81 MG CHEW TAB 324 MG PO (21:09)
[2023-04-22 21:36] LABS: Thyroid Stimulating Hormone 1.25 uIU/mL (0.47-4.68)
--- NOTE | 2023-04-22 23:20 | PC.NURSE ---
GENERAL DENTIST/OWNER note: 2319 per RN Gunnar, Cb d/c-ED the IV. I used two gauze squares, and coban. Tip of IV came out clean and tip intact. RN aware
== END 2023-04-22 23:27 | disposition home or self-care (01) ==
PROVIDERS: Emergency Provider Emergency Medicine; PCP Physician Assistant Medical
DX: R07.9 Chest pain, unspecified (principal); R00.2 Palpitations; R51.9 Headache, unspecified; R41.89 Other symptoms and signs involving cognitive functions and awareness
CPT/HCPCS: 36415; 70450; 71045; 80053; 82550; 83690; 83735; 84443; 84484; 85025; 85610; 85730; 93005; 93010; 99284

== ENCOUNTER 2023-07-29 17:21 | Emergency (ER) | payer OTHER, SELFPAY ==
[2023-07-29 17:24] VITALS: BP 177/101; PULSE 73; RESP 18; TEMP 36.8; O2SAT 97; BMI 33.2
[2023-07-29 17:56] LABS: Add Manual Diff / Slide Review NO; Basophils Absolute Auto 100 /uL (0-100); Basophils Percent Auto 0.7 % (0-2); Eosinophils Absolute Auto 500 /uL (0-450); Eosinophils Percent Auto 5.5 % (2-4); Hemoglobin 15.9 g/dL (13.5-17.5); Lymphocytes Absolute Auto 2100 /uL (1100-4500); Lymphocytes Percent Auto 22.3 % (25-40); Mean Corpuscular HGB Conc 35.3 % (30-36); Mean Corpuscular Hemoglobin 32.5 PG (26-34); Mean Corpuscular Volume 92.3 fL (80-100); Monocytes Absolute Auto 900 /uL (0-900); Monocytes Percent Auto 9.2 % (3-14); Neutrophils Absolute Auto 5800 /uL (1500-7000); Neutrophils Percent Auto 62.3 % (50-75); Platelet Count 238 X10^3/uL (150-400); Red Blood Cell Count 4.88 X10^6/uL (4.5-5.9); Red Cell Distribution Width 13.2 % (11.6-14.8); White Blood Cell Count 9.2 X10^3/uL (4.5-11.0)
--- NOTE | 2023-07-29 18:00 | DI.CT.S_ITS ---
PROCEDURE: CT ABDOMEN PELVIS W CON INDICATIONS: ? Nephrolithiasis TECHNIQUE: After the administration of intravenous contrast, axial sections acquired from the lung bases to the pubic symphysis. Coronal and sagittal reformats were performed. For radiation dose reduction, the following was used: automated exposure control, adjustment of mA and/or kV according to patient size. COMPARISON: None. FINDINGS: Image quality: Diagnostic. Lower Chest: Small hiatal hernia. ABDOMEN: Liver: No solid mass. Gallbladder: No radiopaque gallstones or wall thickening. Biliary ducts: No biliary dilation. Pancreas: No ductal dilation. Spleen: Size is within normal limits. Adrenal Glands: No adrenal nodules. Kidneys and Ureters: Obstructing 7 x 4 mm stone within the left UPJ, resulting in moderate hydronephrosis. Small burden of bilateral, nonobstructing nephrolithiasis. Stomach and Bowel: Normal colonic caliber, without significant wall thickening. Normal appendix. Peritoneum: No abnormal intraperitoneal fluid. No free air. Ventral Wall: Small umbilical hernia containing fat. Abdominal Nodes: No retroperitoneal or mesenteric adenopathy by size criteria. Vessels: Aorta and inferior vena cava are normal in size. PELVIS: Pelvic Organs: Unremarkable. Bladder: No bladder wall thickening, accounting for underdistention. Pelvic Nodes: No enlarged lymph nodes. Miscellaneous: Small, fat containing inguinal hernias. Bones: No aggressive osseous abnormality. Osteoporosis by Hounsfield units criteria. Degenerative disc disease of the lumbar spine. IMPRESSION: Obstructing 4 x 7 mm stone in the left UVJ, resulting in moderate hydronephrosis. Additional small burden of nonobstructing bilateral nephrolithiasis. Osteoporosis by Hounsfield units criteria. Dictated by: Chadwick Oshea M.D. on 07/29/2023 at 18:23 Approved by: Chadwick Oshea M.D. on 07/29/2023 at 18:26
[2023-07-29 18:04] LABS: Bacteria Urine Moderate (10-30); RBC Urine 30-100/HPF (0-5/HPF); Squamous Epithelial Cell Urine 0-1 /HPF (0-5/HPF); Urine Volume 10mL (spun); WBC Urine 0-1/HPF (0-5/HPF)
[2023-07-29 18:05] LABS: Culture Indicated Urine Cult Not Indicated
[2023-07-29 18:09] LABS: INR 1.1 (0.9-1.3); Prothrombin Time 12.5 SECONDS (9.4-12.5)
[2023-07-29] MEDS: KETOROLAC 30 MG/ML VIAL 15 MG IV (18:09)
[2023-07-29] MEDS: SODIUM CHLORIDE 0.9% 1,000 ML 1000 ML IV (18:09)
[2023-07-29 18:12] LABS: PTT Partial Thromboplastin Tim 38 SECONDS (25.1-36.5)
--- NOTE | 2023-07-29 18:14 | ED_ITS ---
HPI - Male Genitourinary <Elizabeth Yee PA-C - Last Filed: 07/29/23 19:30> General Chief complaint: Urogenital-Male Stated complaint: lt lower back pain Time Seen by Provider: 07/29/23 17:34 Source: patient Mode of arrival: Ambulatory History of Present Illness HPI Narrative: 47-year-old male with past medical history rheumatoid arthritis, nephrolithiasis presents to the ED with 3 days of left-sided flank pain, nausea. Patient denies fever, chills, vomiting, chest pain, shortness of breath. Patient does state that he also feels a dull abdominal pain which feels like gas pains. Patient has a history of nephrolithiasis, states that the discomfort feels very similar to his other kidney stone episodes. Patient states his symptoms started of with feeling somewhat unwell and nauseous, followed by the left flank pain and abdominal pain. Patient denies dysuria, lightheadedness, constipation, dizziness, diarrhea. Related Data Home Medications Medication Instructions Recorded Confirmed secukinumab 150 mg/mL subcutaneous 300 mg SUBCUT Q4W 07/31/21 08/01/21 syringe (Cosentyx 300 mg/2 Syringes () Previous Rx's Medication Instructions Recorded tamsulosin 0.4 mg capsule (Flomax) 0.4 mg PO DAILY #30 caps 07/27/21 oxycodone 5 mg tablet 5 mg PO Q4H PRN pain #20 tabs 08/01/21 benzonatate 100 mg capsule 100 mg PO TID PRN cough #20 caps 01/19/22 ondansetron 4 mg disintegrating 4 mg PO Q8H PRN nausea and 07/29/23 tablet vomiting #14 tabs tamsulosin 0.4 mg capsule 0.4 mg PO BEDTIME #30 caps 07/29/23 tramadol 50 mg tablet 50 mg PO Q6H PRN pain #20 tabs 07/29/23 Allergies Allergy/AdvReac Type Severity Reaction Status Date / Time No Known Drug Allergies Allergy Verified 04/22/23 19:49 Review of Systems <Elizabeth Yee PA-C - Last Filed: 07/29/23 19:30> Constitutional Constitutional: Denies chills, Denies fatigue, Denies fever(s), Denies frequent falls, Denies lethargy and Denies weakness Eyes Eyes: Denies change in vision, Denies eye discharge, Denies irritation and Denies loss of vision ENT Ears, Nose, Mouth, and Throat: Denies change in voice, Denies dizziness, Denies neck pain, Denies sore throat and Denies throat swelling Cardiovascular Cardiovascular: Denies chest pain, Denies irregular heart rhythm, Denies lightheadedness, Denies palpitations, Denies dyspnea, Denies dyspnea on exertion and Denies orthopnea Respiratory Respiratory: Denies cough, Denies dyspnea, Denies dyspnea on exertion and Denies wheezing Gastrointestinal Gastrointestinal: Reports abdominal pain, Denies change in bowel habits, Denies diarrhea, Reports nausea and Denies vomiting Comments: Left-sided flank pain Musculoskeletal Musculoskeletal: Denies neck pain and Denies numbness Integumentary/Breasts Skin/Breast: Denies pruritus, Denies erythema, Denies rash and Denies wounds Neurologic Neurologic: Denies behavioral changes, Denies confusion, Denies dizziness, Denies frequent falls, Denies loss of vision, Denies numbness and Denies weakness Psychiatric Psychiatric: Denies anxiety, Denies behavioral changes, Denies confusion, Denies depression, Denies homicidal ideation and Denies suicidal ideation Endocrine Endocrine: Denies fatigue, Denies flushing and Denies palpitations Hematologic/Lymphatic Hematologic/Lymphatic: Denies easy bruising Allergic/Immunologic Allergic/Immunologic: Denies urticaria, Denies throat swelling and Denies wheezing Patient History <Elizabeth Yee PA-C - Last Filed: 07/29/23 19:30> Medical History COVID-19 virus infection (07/31/21) Right ureteral calculus Kidney stones Rheumatoid arthritis Surgical History History of tonsillectomy Social History household members: spouse and children Smoking Status: Never smoker alcohol intake: never caffeine: Yes Type(s) of exercise: other frequency: 3-4 times per week Smoking Status: Never smoker alcohol intake frequency: 0-2 drinks per day Substance Use Type: does not use Exam <Elizabeth Yee PA-C - Last Filed: 07/29/23 19:30> Narrative Exam Narrative: Const General:?cooperative, healthy appearing and comfortable [facility] Head:?normal to inspection Ears:?hearing grossly normal bilaterally Nose:?external nose normal Face and sinus:?normal facial exam and sinuses nontender Mouth:?oral mucosae normal Throat:?posterior oropharynx normal Eyes General:?appearance normal, both eyes and all related structures Neck Neck:?normal visual inspection and no lymphadenopathy noted Resp Effort & Inspection:?normal respiratory effort Auscultation:?clear to auscultation bilaterally Cardio Rate:?regular rate Rhythm:?regular rhythm GI Abdomen is soft, nondistended, nontender to palpation. There is no CVA tenderness. Neuro General:?patient alert, patient awake and patient oriented x3 Initial Vital Signs Initial Vital Signs: Vital Signs Temperature 98.3 F 07/29/23 17:24 Pulse Rate 73 07/29/23 17:24 Respiratory Rate 18 07/29/23 17:24 Blood Pressure 177/101 H 07/29/23 17:24 Pulse Oximetry 97 07/29/23 17:24 Oxygen Delivery Method Room Air 07/29/23 17:24 <Deshawn Gutierrez DO - Last Filed: 07/29/23 19:55> Initial Vital Signs Initial Vital Signs: Vital Signs Temperature 98.3 F 07/29/23 17:24 Pulse Rate 73 07/29/23 17:24 Respiratory Rate 18 07/29/23 17:24 Blood Pressure 177/101 H 07/29/23 17:24 Pulse Oximetry 97 07/29/23 17:24 Oxygen Delivery Method Room Air 07/29/23 17:24 Course <Elizabeth Yee PA-C - Last Filed: 07/29/23 19:30> Orders Ordered: ED Orders 07/29/23 17:30 Urine Microscopic Stat 07/29/23 17:45 CBC Auto Diff [Complete Blood Count AUTO DIFF] Stat CMP [Comprehensive Metabolic Panel] Stat Lipase Stat PT [Prothrombin Time INR] Stat PTT [PTT Partial Thromboplastin [place]] Stat 07/29/23 18:00 CT abdomen pelvis w con Stat 07/29/23 19:12 Urine Culture Stat Discontinued Medications Sodium Chloride (Normal Saline 0.9%) 1,000 mls @ 1,000 mls/hr IV BOLUS ONE Stop: 07/29/23 18:42 Last Infusion: 07/29/23 19:40 Dose: Infused Documented By: Admin: 07/29/23 18:09 Dose: 1,000 mls/hr Documented By: TRUDY Ketorolac Tromethamine (Ketorolac 30 Mg/Ml Vial) 15 mg IV NOW ONE Stop: 07/29/23 17:44 Last Admin: 07/29/23 18:09 Dose: 15 mg Documented By: TRUDY Vital Signs Vital signs: Vital Signs - 8 hr 07/29/23 17:24 07/29/23 19:07 07/29/23 19:09 Temperature 98.3 F Pulse Rate 73 72 Respiratory Rate 18 Blood Pressure 177/101 H 136/75 Pulse Oximetry 97 96 Oxygen Delivery Method Room Air Room Air 07/29/23 19:09 Temperature Pulse Rate 70 Respiratory Rate Blood Pressure Pulse Oximetry 96 Oxygen Delivery Method Room Air <Deshawn Gutierrez DO - Last Filed: 07/29/23 19:55> Orders Ordered: ED Orders 07/29/23 17:30 Urine Microscopic Stat 07/29/23 17:45 CBC Auto Diff [Complete Blood Count AUTO DIFF] Stat CMP [Comprehensive Metabolic Panel] Stat Lipase Stat PT [Prothrombin Time INR] Stat PTT [PTT Partial Thromboplastin [place]] Stat 07/29/23 18:00 CT abdomen pelvis w con Stat 07/29/23 19:12 Urine Culture Stat Discontinued Medications Sodium Chloride (Normal Saline 0.9%) 1,000 mls @ 1,000 mls/hr IV BOLUS ONE Stop: 07/29/23 18:42 Last Infusion: 07/29/23 19:40 Dose: Infused Documented By: Admin: 07/29/23 18:09 Dose: 1,000 mls/hr Documented By: TRUDY Ketorolac Tromethamine (Ketorolac 30 Mg/Ml Vial) 15 mg IV NOW ONE Stop: 07/29/23 17:44 Last Admin: 07/29/23 18:09 Dose: 15 mg Documented By: TRUDY Vital Signs Vital signs: Vital Signs - 8 hr 07/29/23 17:24 07/29/23 19:07 07/29/23 19:09 Temperature 98.3 F Pulse Rate 73 72 Respiratory Rate 18 Blood Pressure 177/101 H 136/75 Pulse Oximetry 97 96 Oxygen Delivery Method Room Air Room Air 07/29/23 19:09 Temperature Pulse Rate 70 Respiratory Rate Blood Pressure Pulse Oximetry 96 Oxygen Delivery Method Room Air MDM - Male Genitourinary <Elizabeth Yee PA-C - Last Filed: 07/29/23 19:30> Lab Data 07/29/23 17:45 07/29/23 17:45 Labs: Lab Results 07/29/23 07/29/23 Range/Units 17:30 17:45 WBC 9.2 (4.5-11.0) X10^3/uL RBC 4.88 (4.5-5.9) X10^6/uL Hgb 15.9 (13.5-17.5) g/dL Hct 45.0 (41-53) % MCV 92.3 (80-100) fL MCH 32.5 (26-34) PG MCHC 35.3 (30-36) % RDW 13.2 (11.6-14.8) % Plt Count 238 (150-400) X10^3/uL Neut % (Auto) 62.3 (50-75) % Lymph % (Auto) 22.3 L (25-40) % Jennings % (Auto) 9.2 (3-14) % Eos % (Auto) 5.5 H (2-4) % Baso % (Auto) 0.7 (0-2) % Neut # (Auto) 5800 (1632-1805) /uL Lymph # (Auto) 2100 (9596-1347) /uL Jennings # (Auto) 900 (0-900) /uL Eos # (Auto) 500 H (0-450) /uL Baso # (Auto) 100 (0-100) /uL PT 12.5 (9.4-12.5) SECONDS INR 1.1 (0.9-1.3) APTT 38 H (25.1-36.5) SECONDS Sodium 140 (137-145) mmol/L Potassium 4.2 (3.4-5.1) mmol/L Chloride 107 (98-107) mmol/L Carbon Dioxide 25 (22-32) mmol/L BUN 21 H (9-20) mg/dL Creatinine 0.91 (0.66-1.25) mg/dL Estimated GFR > 60 (>60) mL/min BUN/Creatinine Ratio 23.1 H (6-22) Glucose 101 H (70-100) mg/dL Calcium 9.3 (8.4-10.2) mg/dL Total Bilirubin 0.6 (0.2-1.3) mg/dL AST 68 H (17-59) IU/L ALT 73 H (<50) IU/L Alkaline Phosphatase 70 (38-126) U/L Total Protein 7.7 (6.3-8.2) g/dL Albumin 4.9 (3.5-5.0) g/dL Globulin 2.8 (1.7-4.1) g/dL Albumin/Globulin Ratio 1.8 (1.0-2.8) Lipase 103 (23-300) U/L Urine RBC 30-100/hpf H (0-5/HPF) Urine WBC 0-1/hpf (0-5/HPF) Ur Squamous Epith Cells 0-1 /hpf (0-5/HPF) Urine Bacteria Moderate (10-30) H (None) Ur Culture Indicated? Cult not indicated Vol Urine Centrifuged 10ml (spun) Urine Dip Bedside Urine Glucose Negative Bedside Urine Bilirubin - Negative Bedside Urine Ketone - Negative Urine Specific [place] 1.030 Bedside Urine Occult Blood +++ Bedside Urine pH 5.5 Bedside Urine Protein - Negative Bedside Urine Urobilinogen - Negative Bedside Urine Nitrite - Negative Bedside Urine Leukocytes - Negative Esterase MDM Narrative Medical decision making narrative: 47-year-old male with past medical history rheumatoid arthritis, nephrolithiasis presents to the ED with 3 days of left-sided flank pain, nausea. Concern for nephrolithiasis versus UTI versus pyelonephritis versus other intra-abdominal pathology versus musculoskeletal sprain/strain versus other. Will obtain labs, UA, CT abdomen pelvis. Will give IV fluids, ketorolac for symptoms. Will reassess. Labs within normal limits. Kidney function within normal limits. UA shows blood but no infection. CT abdomen pelvis shows a 4 mm x 7 mm obstructing proximal left ureteral stone. Dr. Faye from Urology was consulted, he will see patient in clinic for further evaluation and treatment. Patient's pain has been controlled with ketorolac. Sending patient home with tramadol, Zofran, tamsulosin. Patient agrees to follow-up with [facility]. ED return precautions were discussed with patient. Patient verbalized understanding. Medical records reviewed: Yes <Deshawn Gutierrez DO - Last Filed: 07/29/23 19:55> Lab Data Labs: Lab Results 07/29/23 07/29/23 Range/Units 17:30 17:45 WBC 9.2 (4.5-11.0) X10^3/uL RBC 4.88 (4.5-5.9) X10^6/uL Hgb 15.9 (13.5-17.5) g/dL Hct 45.0 (41-53) % MCV 92.3 (80-100) fL MCH 32.5 (26-34) PG MCHC 35.3 (30-36) % RDW 13.2 (11.6-14.8) % Plt Count 238 (150-400) X10^3/uL Neut % (Auto) 62.3 (50-75) % Lymph % (Auto) 22.3 L (25-40) % [place] % (Auto) 9.2 (3-14) % Eos % (Auto) 5.5 H (2-4) % Baso % (Auto) 0.7 (0-2) % Neut # (Auto) 5800 (1025-7038) /uL Lymph # (Auto) 2100 (6495-5851) /uL Jennings # (Auto) 900 (0-900) /uL Eos # (Auto) 500 H (0-450) /uL Baso # (Auto) 100 (0-100) /uL PT 12.5 (9.4-12.5) SECONDS INR 1.1 (0.9-1.3) APTT 38 H (25.1-36.5) SECONDS Sodium 140 (137-145) mmol/L Potassium 4.2 (3.4-5.1) mmol/L Chloride 107 (98-107) mmol/L Carbon Dioxide 25 (22-32) mmol/L BUN 21 H (9-20) mg/dL Creatinine 0.91 (0.66-1.25) mg/dL Estimated GFR > 60 (>60) mL/min BUN/Creatinine Ratio 23.1 H (6-22) Glucose 101 H (70-100) mg/dL Calcium 9.3 (8.4-10.2) mg/dL Total Bilirubin 0.6 (0.2-1.3) mg/dL AST 68 H (17-59) IU/L ALT 73 H (<50) IU/L Alkaline Phosphatase 70 (38-126) U/L Total Protein 7.7 (6.3-8.2) g/dL Albumin 4.9 (3.5-5.0) g/dL Globulin 2.8 (1.7-4.1) g/dL Albumin/Globulin Ratio 1.8 (1.0-2.8) Lipase 103 (23-300) U/L Urine RBC 30-100/hpf H (0-5/HPF) Urine WBC 0-1/hpf (0-5/HPF) Ur Squamous Epith Cells 0-1 /hpf (0-5/HPF) Urine Bacteria Moderate (10-30) H (None) Ur Culture Indicated? Cult not indicated Vol Urine Centrifuged 10ml (spun) Urine Dip Bedside Urine Glucose Negative Bedside Urine Bilirubin - Negative Bedside Urine Ketone - Negative Urine Specific [place] 1.030 Bedside Urine Occult Blood +++ Bedside Urine pH 5.5 Bedside Urine Protein - Negative Bedside Urine Urobilinogen - Negative Bedside Urine Nitrite - Negative Bedside Urine Leukocytes - Negative Esterase Discharge Plan Departure Patient Disposition: Home Clinical Impression: Kidney stone Instructions: DI for Kidney Stones Activity Restrictions/Additional Instructions: You were evaluated in the ED today for flank pain and abdominal pain, nausea. It appears that you have a obstructing 4 mm x 7 mm stone on the left side. You are being prescribed tramadol for pain control, Zofran for nausea control and tamsulosin to help with passage of the stone. Please take those as prescribed. Please follow-up with [facility] by calling [phone] for an appointment for follow-up. Return to the ED if you have worsening symptoms, uncontrollable pain and vomiting despite the medications. Prescriptions: New tramadol 50 mg tablet 50 mg PO Q6H PRN (Reason: pain) Qty: 20 0RF tamsulosin 0.4 mg capsule 0.4 mg PO BEDTIME Qty: 30 0RF ondansetron 4 mg tablet,disintegrating 4 mg PO Q8H PRN (Reason: nausea and vomiting) Qty: 14 0RF No Action tamsulosin [Flomax] 0.4 mg capsule 0.4 mg PO DAILY Qty: 30 0RF oxycodone 5 mg tablet 5 mg PO Q4H PRN (Reason: pain) Qty: 20 0RF benzonatate 100 mg capsule 100 mg PO TID PRN (Reason: cough) Qty: 20 0RF Cosentyx (2 Syringes) 150 mg/mL syringe 300 mg SUBCUT Q4W Rx Instructions: start 4 wks after last weekly dose;inject [id number] doses each in different thigh/upper arm/abdominal areas Referrals: Skylar Rosa PA-C [Primary Care Provider] - Stand Alone Forms: Patient Portal/API ED Sign-out <Deshawn Gutierrez DO - Last Filed: 07/29/23 19:55> Cosign ED Attending Cosignature Attestation: Dr Gutierrez Co-Sign Statement: I was available for consultation during this patient's emergency department visit. This chart is signed by myself for administrative purposes only. I did not have direct contact with this patient during this visit. They were seen independently by the APC.
[2023-07-29 18:19] LABS: Alanine Aminotransferase 73 IU/L (<50); Albumin 4.9 g/dL (3.5-5.0); Albumin Globulin Ratio 1.8 (1.0-2.8); Alkaline Phosphatase 70 U/L (38-126); Aspartate Aminotransferase 68 IU/L (17-59); BUN Creatinine Ratio 23.1 (6-22); Bilirubin Total 0.6 mg/dL (0.2-1.3); Blood Urea Nitrogen 21 mg/dL (9-20); Calcium 9.3 mg/dL (8.4-10.2); Carbon Dioxide 25 mmol/L (22-32); Chloride 107 mmol/L (98-107); Estimated Glomerular Filt Rate > 60 mL/min (>60); Globulin 2.8 g/dL (1.7-4.1); Glucose 101 mg/dL (70-100); HEMOLYSIS 18 (0-50); Lipase 103 U/L (23-300); Potassium 4.2 mmol/L (3.4-5.1); Sodium 140 mmol/L (137-145); Total Protein 7.7 g/dL (6.3-8.2)
[2023-07-29 19:07] VITALS: PULSE 72; O2SAT 96
[2023-07-29 19:09] VITALS: BP 136/75; PULSE 70; O2SAT 96
== END 2023-07-29 19:41 | disposition home or self-care (01) ==
PROVIDERS: Emergency Provider Student in an Organized Health Care Education/Training Program; PCP Physician Assistant Medical
DX: N20.0 Calculus of kidney (principal)
CPT/HCPCS: 74177; 80053; 81003; 81015; 83690; 85025; 85610; 85730; 87086; 96374; 99284; J1885; Q9967

== ENCOUNTER 2023-07-31 07:34 | Day surgery (SDC) | payer OTHER, SELFPAY ==
[2023-07-31] VITALS (15 sets, daily range): BP systolic 82–137; BP diastolic 39–92; PULSE 53–83; RESP 12–19; TEMP 36.1–36.3; O2SAT 90–99; BMI 33.2
[2023-07-31] MEDS: LACTATED RINGERS 1,000 ML 42 ML IV (08:12)
[2023-07-31] MEDS: ACETAMINOPHEN 325 MG TABLET 975 MG PO (08:14)
--- NOTE | 2023-07-31 09:15 | P.HP_ITS ---
History of Present Illness History of Present Illness Date Patient Seen: 07/31/23 Time Patient Seen: 09:15 Date of Onset of Symptoms: 07/26/23 Chief complaint: Left urinary calculus Narrative: This 47-year-old male presented to the emergency department on 07/29/2003 with complaint of 3 day history of left-sided pain, nausea, vomiting, feeling poorly. Workup revealed him to have a proximal left 4 x 7 ureteral calculus. Patient has had persistent colic and presents at this time for cystoscopy with left ureteral stent placement. Patient has had a prior history of stones approximately 3 years ago which required treatment. He reports prior to that he had a stone in be thinks the 1970s. Patient has not had a metabolic workup. Patient is unaware of any family history of kidney stones. The stone appears quite tight there is some hydronephrosis. And so it would appear that cystoscopy with stent placement would be the indicated procedure at this point. The procedure, risks, alternatives were discussed the patient questions were answered and he wishes to proceed. The risks to include but not limited to bleeding, infection, injury to surrounding structures, ureteral injury, failure to get the stone in, ureteral colic, stent sequelae, need for future procedures, anesthetic complications, unforeseen and unpredictable consequences in sequelae. The patient voices understanding and acceptance of risks and wishes to proceed. [facility] Medical History (Updated 07/31/23 @ 09:21 by David Faye MD) History of kidney stones Left flank pain Obstruction of left ureteropelvic junction (UPJ) due to stone COVID-19 virus infection (07/31/21) Right ureteral calculus Kidney stones Rheumatoid arthritis Surgical History Hx of cystoscopy (08/01/21) History of tonsillectomy Social History household members: spouse and children Smoking Status: Never smoker alcohol intake: never caffeine: Yes Type(s) of exercise: other frequency: 3-4 times per week Meds Home Medications and Allergies Home Medications Medication Instructions Recorded Confirmed Type tamsulosin 0.4 mg capsule (Flomax) 0.4 mg PO DAILY #30 caps 07/27/21 07/31/23 Rx secukinumab 150 mg/mL subcutaneous 300 mg SUBCUT Q4W 07/31/21 07/31/23 History syringe (Cosentyx 300 mg/2 Syringes () oxycodone 5 mg tablet 5 mg PO Q4H PRN pain #20 tabs 08/01/21 Rx tamsulosin 0.4 mg capsule 0.4 mg PO BEDTIME #30 caps 07/29/23 07/31/23 Rx tramadol 50 mg tablet 50 mg PO Q6H PRN pain #20 tabs 07/29/23 07/31/23 Rx Allergies Allergy/AdvReac Type Severity Reaction Status Date / Time No Known Drug Allergies Allergy Verified 07/31/23 07:57 Review of Systems Review of Systems ROS: Yes All systems reviewed with the patient and are negative except as otherwise documented (And problem list) Exam Vital Signs (past 8 hours): - 07/31/23 08:04 Temperature 97.2 F L Pulse Rate 79 Respiratory Rate 16 Blood Pressure 137/92 H Pulse Oximetry 96 Oxygen Delivery Method Room Air Oxygen Delivery Method Room Air Narrative Exam Narrative: General: This is an awake, alert, oriented male who is mildly obese and in minimal distress. Lungs: Clear full and equal Cardiovascular exam: Regular rate and rhythm without murmur Abdominal exam: Soft obese, nontender, without mass Genitourinary exam: Normal male Rectal exam: Not indicated Neurologic exam: Grossly intact Assessment & Plan Assessment and plan (1) Obstruction of left ureteropelvic junction (UPJ) due to stone: Status: Acute (2) Left flank pain: Status: Acute (3) History of kidney stones: Status: Acute Plan Assessment and plan: Left ureteral calculus at the UPJ seemingly very tight plan would be for cystoscopy with left stent placement coverage with antibiotics. COVID-19 COVID-19 status: Not tested
--- NOTE | 2023-07-31 09:21 | PM.PREOP ---
Pre-operative Note COVID-19 COVID-19 status: Not tested Interval Note History & Physical reviewed/Exam performed by Physician: Yes Changes to H&P: No
[2023-07-31] MEDS: CEFAZOLIN 2 GM/100 ML PREMIX 100 ML IV (09:25)
--- NOTE | 2023-07-31 09:41 | SUR.OPER ---
Lithotomy on padded OR bed, head on pillow, arms secured on padded arm boards at <90 degrees abduction. Legs secured in padded yellow fins stirrups.
[2023-07-31] MEDS: iopamidoL 30 ML VIAL INJ (09:50)
--- NOTE | 2023-07-31 09:59 | P.OP_ITS ---
Procedure & Clinicians Procedure: Cystoscopy with left ureteral stent placement Same procedure as scheduled: Yes Indications: This 47-year-old male presented to the emergency department with complaints of left-sided pain. Patient has a history of kidney stones and was found to have a 4 x 7 mm left UPJ stone. He has had unremitting colic and presents at this time for cystoscopy with stent placement. Surgeon: David Faye Click Yes if Unassisted: Yes Anesthesia Type: General Operative Notes Findings: Urethral meatus is normal urethra is normal along its length with normal mucosa. The sphincter as well coapted the prostate exhibits normal mucosa and minimal to moderate obstructive character. The ureteral orifices in normal position with clear efflux on the right. After the stent placement there was a slightly cloudy efflux via the stent on the left. There were no mucosal lesions or abnormalities noted within the bladder. At stent placement it did appears if the stone may have been pushed back into the renal pelvis. We will ascertain this with a KUB at follow-up. No other abnormalities or significant findings were noted. Stent was left in good position in the left collecting system. Closure Type: not applicable Specimen(s): none sent Prosthetic devices, grafts, tissues, transplants, or devices: Seven Bulgarian by multi length left ureteral stent without a string left in the left collecting system. Estimated Blood Loss (mL): 0 Blood products transfused: none Procedure in detail: Procedure in detail: After informed consent was obtained, the patient was identified brought to the operating room where he placed supine position on the table. Once there anesthesia was induced and maintained. Ensuring an adequate level of anesthesia the patient was transferred to the lithotomy position where he was prepped, draped, prepared for Transurethral procedure. After prepping, draping, time-out, administration of antibiotics ensuring an adequate level of anesthesia a 22 Bulgarian cystoscope was passed through the urethra prostate and into the bladder where cystoscopy was performed. The left ureteral orifice once again identified and a wire was passed up and into the collecting system under fluoroscopic guidance. With the wire in good position the stent was passed over the wire positioned in the renal pelvis under fluoroscopic visualization and in the bladder under direct vision. The wire was removed the stent was left in good position. The nylon harness was removed and again fluoroscopy was employed to ensure appropriate positioning of the stent in the renal pelvis and then under direct vision it was verified that it was in good position within the bladder. With this being true the bladder was drained the scope was removed and the patient was awakened having tolerated the procedure well to be transferred to the postanesthesia care unit for recovery and then discharged to home. There were no complications Complications: none Post-operative Condition: stable Disposition: PACU Plan for aftercare: Follow-up my office in approximately 7 days with a KUB.
[2023-07-31] MEDS: OXYBUTYNIN 5 MG TABLET PO (10:27)
[2023-07-31] MEDS: PHENAZOPYRIDINE 100 MG TABLET 200 MG PO (10:27)
[2023-07-31] MEDS: ONDANSETRON 4 MG/2 ML INJ IV (10:27)
[2023-07-31] MEDS: METOCLOPRAMIDE 10 MG/2 ML INJ IV (10:37)
== END 2023-07-31 11:35 | disposition home or self-care (01) ==
PROVIDERS: Referring Provider Urology; Visit Provider Urology
PROC: (CPT 52332; principal; 2023-07-31 09:00)
DX: N20.1 Calculus of ureter (principal)
CPT/HCPCS: 52332; 76000; J0330; J0690; J1100; J1885; J2405; J2704; J2765; J3010; Q9967

== ENCOUNTER → 2023-08-06 17:19 | Outpatient (CLI) | payer OTHER, SELFPAY ==
--- NOTE | 2023-08-06 17:20 | DI.RAD.S_ITS ---
PROCEDURE: XR KUB INDICATIONS: Kidney stones TECHNIQUE: One view of the abdomen acquired. COMPARISON: [facility], CR, XR KUB, 08/01/2021, 19:03. [facility], CT, CT ABDOMEN PELVIS W CON, 07/29/2023, 17:57. FINDINGS: Surgical changes and devices: Left ureterovesicular stent is present. Bowel: Bowel gas pattern is normal. Soft tissues: No suspicious abdominal calcifications. Calcification is present overlying the left renal shadow. The previous proximal ureteral calcification was at the distal aspect of the renal pelvis/proximal ureter. It appears likely unchanged in position.Visualized solid organ contours appear normal in size. Unchanged calcification overlying the right renal shadow. Bones: No suspicious bony lesions. IMPRESSION: Left ureterovesicular stent with likely unchanged location of previous stone. Dictated by: Destinee Mccurdy M.D. on 08/07/2023 at 20:04 Approved by: Destinee Mccurdy M.D. on 08/07/2023 at 20:06
== END ==
PROVIDERS: Referring Provider Urology; Visit Provider Urology
DX: N20.2 Calculus of kidney with calculus of ureter (principal); Z96.0 Presence of urogenital implants
CPT/HCPCS: 74018

== ENCOUNTER → 2023-08-07 10:00 | Outpatient (CLI) | payer OTHER, SELFPAY | PROVIDERS: Visit Provider Urology | DX: N20.0 Calculus of kidney (principal); R10.9 Unspecified abdominal pain | CPT/HCPCS: 87086 ==

== ENCOUNTER 2023-08-12 07:36 | Day surgery (SDC) | payer OTHER, SELFPAY ==
[2023-08-12] VITALS (8 sets, daily range): BP systolic 94–132; BP diastolic 54–89; PULSE 67–82; RESP 10–18; TEMP 36.4–36.6; O2SAT 93–96; BMI 32.0
[2023-08-12] MEDS: LACTATED RINGERS 1,000 ML 21 ML IV (08:14)
--- NOTE | 2023-08-12 08:25 | PM.PREOP ---
Pre-operative Note COVID-19 COVID-19 status: Not tested Interval Note History & Physical reviewed/Exam performed by Physician: Yes Changes to H&P: No
--- NOTE | 2023-08-12 08:27 | SUR.OPER ---
Supine on ESWL table, head on pillow, arms padded and tucked at sides, legs uncrossed.
[2023-08-12] MEDS: CEFAZOLIN 2 GM/100 ML PREMIX 100 ML IV (08:39)
--- NOTE | 2023-08-12 09:05 | PM.OP.1 ---
Procedure & Clinicians Procedure: Left extracorporeal shockwave lithotripsy Same procedure as scheduled: Yes Indications: This 47-year-old male presented with profound renal colic on the left side was found to have a 4 x 7 mm stone and underwent cystoscopy with stent placement. This pushed the stone back into the kidney and the patient presents this time for extracorporeal shockwave lithotripsy to treat his stone. Surgeon: David Faye Click Yes if Unassisted: Yes Anesthesia Type: General Operative Notes Findings: The stone was noted to be in the kidney. It was 4 x 7 mm and after a 1000 shock waves it appeared to be well fragmented. The stent was in good position there were no other remarkable findings. Closure Type: not applicable Specimen(s): none sent Prosthetic devices, grafts, tissues, transplants, or devices: Stent was already in place Blood products transfused: none Procedure in detail: Procedure in detail: After informed consent was obtained, the patient was identified brought to the operating room where he was placed in his supine position on the Lithotripter. Once there anesthesia was induced and maintained. After ensuring an adequate level of anesthesia, administration of antibiotics and time-out the stone was targeted and localized via the imaging system and shockwave delivered 4000 shocks at level 7. There was periodic reimaging and re localization to ensure maximal androgen delivery to the stone. At a 1000 shockwave the stone appeared well fragmented and the shockwave head was rotated out where fluoroscopy was performed confirming that the stone was by all appearances completely fragmented. At this point the patient was awakened having tolerated the procedure well he was transferred to the postanesthesia care unit for recovery. There were no complications patient will follow-up in my office in approximately 7-10 days with a KUB. Complications: none Post-operative Condition: stable Disposition: PACU Plan for aftercare: Once the patient is fully awake and alert he will be discharged to home he will strain his urine save any fragments and bring these to follow-up which will be in 7-10 days with a KUB.
== END 2023-08-12 10:17 | disposition home or self-care (01) ==
PROVIDERS: Referring Provider Urology; Visit Provider Urology
PROC: (CPT 50590; principal; 2023-08-12 08:45)
DX: N20.0 Calculus of kidney (principal)
CPT/HCPCS: 50590; J0690; J1100; J2250; J2405; J2704; J3010

== ENCOUNTER 2023-08-17 16:48 | Emergency (ER) | payer OTHER, SELFPAY ==
[2023-08-17 16:50] VITALS: BP 135/76; PULSE 80; RESP 18; TEMP 36.7; O2SAT 96; BMI 33.2
[2023-08-17] MEDS: KETOROLAC 30 MG/ML VIAL 15 MG IV (17:14)
[2023-08-17 17:19] LABS: Add Manual Diff / Slide Review NO; Basophils Absolute Auto 100 /uL (0-100); Basophils Percent Auto 0.6 % (0-2); Eosinophils Absolute Auto 400 /uL (0-450); Eosinophils Percent Auto 3.2 % (2-4); Hematocrit 45.9 % (41-53); Hemoglobin 15.8 g/dL (13.5-17.5); Lymphocytes Absolute Auto 2300 /uL (1100-4500); Lymphocytes Percent Auto 19.2 % (25-40); Mean Corpuscular HGB Conc 34.4 % (30-36); Mean Corpuscular Hemoglobin 32.1 PG (26-34); Mean Corpuscular Volume 93.3 fL (80-100); Monocytes Absolute Auto 800 /uL (0-900); Monocytes Percent Auto 6.5 % (3-14); Neutrophils Absolute Auto 8400 /uL (1500-7000); Neutrophils Percent Auto 70.5 % (50-75); Platelet Count 301 X10^3/uL (150-400); Red Blood Cell Count 4.91 X10^6/uL (4.5-5.9); Red Cell Distribution Width 13.1 % (11.6-14.8)
[2023-08-17 17:30] LABS: Appearance Urine UA CLOUDY; Bilirubin Urine UA NEGATIVE (NEGATIVE); Color Urine UA RED; Glucose Urine UA NEGATIVE (Negative); Ketones Urine UA TRACE (NEGATIVE); Leukocyte Esterase Urine UA TRACE (NEGATIVE); Nitrite Urine UA NEGATIVE (Negative); Occult Blood Urine UA 3+ (Negative); Protein Urine UA 2+ (Negative); Specific Gravity Urine UA 1.025 (1.000-1.035); Urobilinogen Urine UA 0.2 E.U./dL (0.2)
[2023-08-17 17:30] LABS: Alanine Aminotransferase 73 IU/L (<50); Albumin 4.5 g/dL (3.5-5.0); Albumin Globulin Ratio 1.7 (1.0-2.8); Alkaline Phosphatase 67 U/L (38-126); Aspartate Aminotransferase 61 IU/L (17-59); BUN Creatinine Ratio 20.5 (6-22); Bilirubin Total 0.7 mg/dL (0.2-1.3); Blood Urea Nitrogen 24 mg/dL (9-20); Calcium 8.9 mg/dL (8.4-10.2); Carbon Dioxide 26 mmol/L (22-32); Chloride 107 mmol/L (98-107); Estimated Glomerular Filt Rate > 60 mL/min (>60); Globulin 2.7 g/dL (1.7-4.1); Glucose 128 mg/dL (70-100); HEMOLYSIS 34 (0-50); Potassium 4.1 mmol/L (3.4-5.1); Sodium 140 mmol/L (137-145); Total Protein 7.2 g/dL (6.3-8.2)
[2023-08-17 17:39] LABS: Bacteria Urine None Seen; RBC Urine >100/HPF (0-5/HPF); Squamous Epithelial Cell Urine None Seen (0-5/HPF); Urine Volume 10mL (spun); WBC Urine 5-10/HPF (0-5/HPF)
[2023-08-17 17:40] LABS: Culture Indicated Urine Specimen Cultured; Mucus Urine 1+ (Negative)
--- NOTE | 2023-08-17 18:55 | ED.MALEGU ---
HPI - Male Genitourinary General Chief complaint: Urogenital-Male Stated complaint: sharp pain lower back, blood in urine Time Seen by Provider: 08/17/23 17:11 Source: patient Mode of arrival: Ambulatory History of Present Illness HPI Narrative: 47-year-old male with history of left-sided kidney stones status post stenting and lithotripsy presents for evaluation of bright red blood in his urine as well as sharp left-sided back pain. Patient reports stent placed 3 weeks ago and lithotripsy 5 days ago for recurrent stone. He has scheduled follow up next week with Dr. Faye of Urology. Patient was concerned because prior to today his urine has been clear with no signs of blood. Related Data Home Medications Medication Instructions Recorded Confirmed secukinumab 150 mg/mL subcutaneous 300 mg SUBCUT Q4W 08/11/23 08/12/23 pen injector (Cosentyx Pen 300 mg/2 Pens () Allergies Allergy/AdvReac Type Severity Reaction Status Date / Time No Known Drug Allergies Allergy Verified 08/17/23 16:59 Patient History Medical History Abdominal pain Left renal stone History of kidney stones Left flank pain Obstruction of left ureteropelvic junction (UPJ) due to stone COVID-19 virus infection (07/31/21) Right ureteral calculus Kidney stones Rheumatoid arthritis Surgical History Hx of cystoscopy (08/01/21) History of tonsillectomy Social History household members: spouse and children Smoking Status: Never smoker alcohol intake: never caffeine: Yes Type(s) of exercise: other frequency: 3-4 times per week Smoking Status: Never smoker alcohol intake frequency: 0-2 drinks per day Substance Use Type: does not use Exam Initial Vital Signs Initial Vital Signs: Vital Signs Temperature 98.1 F 08/17/23 16:50 Pulse Rate 80 08/17/23 16:50 Respiratory Rate 18 08/17/23 16:50 Blood Pressure 135/76 08/17/23 16:50 Pulse Oximetry 96 08/17/23 16:50 Oxygen Delivery Method Room Air 08/17/23 16:50 Const: Awake, alert, no acute distress, nontoxic appearing Cardiac: regular rate, regular rhythm RESP: unlabored, no wheezing Skin: Warm, Dry, intact, no rashes Neuro: AO x3, CN II-XII grossly intact, moves all extremities Course Orders Ordered: ED Orders 08/17/23 19:15 CT abdomen pelvis w con Stat Discontinued Medications Ketorolac Tromethamine (Ketorolac 30 Mg/Ml Vial) 15 mg IV NOW ONE Stop: 08/17/23 17:12 Last Admin: 08/17/23 17:14 Dose: 15 mg Documented By: RB Ondansetron HCl (Ondansetron 4 Mg/2 Ml Inj) 4 mg IV NOW PRN PRN Reason: Nausea And Vomiting Ondansetron HCl (Ondansetron 4 Mg Odt) 4 mg SL NOW PRN PRN Reason: Nausea And Vomiting Vital Signs Vital signs: Vital Signs - 8 hr 08/17/23 20:59 Pulse Rate 74 Respiratory Rate 16 Blood Pressure 143/80 H Pulse Oximetry 96 Oxygen Delivery Method Room Air MDM - Male Genitourinary Differential Diagnosis Differential diagnosis: Likely urinary tract infection, acute retention of urine and inguinal hernia Lab Data 08/17/23 17:09 08/17/23 17:09 Labs: Lab Results 08/17/23 08/17/23 Range/Units 17:04 17:09 WBC 12.0 H (4.5-11.0) X10^3/uL RBC 4.91 (4.5-5.9) X10^6/uL Hgb 15.8 (13.5-17.5) g/dL Hct 45.9 (41-53) % MCV 93.3 (80-100) fL MCH 32.1 (26-34) PG MCHC 34.4 (30-36) % RDW 13.1 (11.6-14.8) % Plt Count 301 (150-400) X10^3/uL Neut % (Auto) 70.5 (50-75) % Lymph % (Auto) 19.2 L (25-40) % Sibley % (Auto) 6.5 (3-14) % Eos % (Auto) 3.2 (2-4) % Baso % (Auto) 0.6 (0-2) % Neut # (Auto) 8400 H (8412-9623) /uL Lymph # (Auto) 2300 (5851-9082) /uL S[place]y # (Auto) 800 (0-900) /uL Eos # (Auto) 400 (0-450) /uL Baso # (Auto) 100 (0-100) /uL Sodium 140 (137-145) mmol/L Potassium 4.1 (3.4-5.1) mmol/L Chloride 107 (98-107) mmol/L Carbon Dioxide 26 (22-32) mmol/L BUN 24 H (9-20) mg/dL Creatinine 1.17 (0.66-1.25) mg/dL Estimated GFR > 60 (>60) mL/min BUN/Creatinine Ratio 20.5 (6-22) Glucose 128 H (70-100) mg/dL Calcium 8.9 (8.4-10.2) mg/dL Total Bilirubin 0.7 (0.2-1.3) mg/dL AST 61 H (17-59) IU/L ALT 73 H (<50) IU/L Alkaline Phosphatase 67 (38-126) U/L Total Protein 7.2 (6.3-8.2) g/dL Albumin 4.5 (3.5-5.0) g/dL Globulin 2.7 (1.7-4.1) g/dL Albumin/Globulin Ratio 1.7 (1.0-2.8) Urine Color Red Urine Appearance Cloudy Urine pH 6.0 (4.5-8.0) Ur Specific [place] 1.025 (1.000-1.035) Urine Protein 2+ H (Negative) Urine Glucose (UA) Negative (Negative) g/dL Urine Ketones Trace H (NEGATIVE) Urine Occult Blood 3+ H (Negative) Urine Nitrate Negative (Negative) Urine Bilirubin Negative (NEGATIVE) Urine Urobilinogen 0.2 (0.2) E.U./dL Ur Leukocyte Esterase Trace H (NEGATIVE) Urine RBC >100/hpf H (0-5/HPF) Urine WBC 5-10/hpf H (0-5/HPF) Ur Squamous Epith Cells None seen (0-5/HPF) Urine Bacteria None seen (None) Urine Mucus 1+ H (Negative) Ur Culture Indicated? Specimen cultured Vol Urine Centrifuged 10ml (spun) Imaging Data CT scan - abdomen/pelvis: Radiologist's Impression: PROCEDURE: CT ABDOMEN PELVIS W CON INDICATIONS: lithotripsy 08/11, persistent severe flank pain, hematuria TECHNIQUE: After the administration of intravenous contrast, axial sections acquired from the lung bases to the pubic symphysis. Coronal and sagittal reformats were performed. For radiation dose reduction, the following was used: automated exposure control, adjustment of mA and/or kV according to patient size. COMPARISON: [facility], CR, XR KUB, 08/06/2023, 17:19. [facility], CT, CT ABDOMEN PELVIS W CON, 07/29/2023, 17:57. FINDINGS: Image quality: Diagnostic. Lower Chest: No pleural effusion. Small hiatal hernia. ABDOMEN: Liver: No solid mass. Gallbladder: No radiopaque gallstones or wall thickening. Biliary ducts: No biliary dilation. Pancreas: No ductal dilation. Spleen: Size is within normal limits. Adrenal Glands: No adrenal nodules. Kidneys and Ureters: No hydronephrosis. Left double-J ureteral stent projects in the expected location. Previously seen calculus at the proximal left ureter is no longer present. Small nonobstructing kidney stones bilaterally. No solid renal mass. Simple appearing cyst at the superior pole of the left kidney. Stomach and Bowel: Normal colonic caliber, without significant wall thickening. Normal appendix. Peritoneum: No abnormal intraperitoneal fluid. No free air. Ventral Wall: Small fat containing umbilical hernia. Abdominal Nodes: No retroperitoneal or mesenteric adenopathy by size criteria. Vessels: Aorta and inferior vena cava are normal in size. PELVIS: Pelvic Organs: Unremarkable. Bladder: No bladder wall thickening, accounting for underdistention. Pelvic Nodes: No enlarged lymph nodes. Miscellaneous: No inguinal hernias are seen. Bones: No aggressive osseous abnormality. Bridging vertebral body osteophytes or syndesmophytes. A few small bone islands. IMPRESSION: 1. Left double-J ureteral stent projects in the expected location. No hydronephrosis. No obstructing calculus. 2. Small bilateral nonobstructing kidney stones. 3. Bridging vertebral body osteophytes or syndesmophytes. This raises the possibility of ankylosing spondylitis. 4. Small hiatal hernia. Dictated by: Mega Swenson M.D. on 08/17/2023 at 20:04 Approved by: Mega Swenson M.D. on 08/17/2023 at 20:11 [facility] Narrative Medical decision making narrative: Bright red blood in urine with recent ureteral stent placement and lithotripsy. Patient uncomfortable on arrival but pain improved with Toradol. Based on patient's recurrent problems as well as new hematuria a CT will be ordered for repeat assessment. CT shows ureteral stents in normal position without hydronephrosis. No other acute findings identified. Labs significant for WBC count 12.0, hemoglobin 15.8, platelets 301, sodium 140, potassium 4.1, creatinine 1.17. Urinalysis positive for 3+ occult blood, multiple RBCs, trace WBCs, no bacteria seen. Patient's case discussed with his urologist Dr. Faye, who was on-call. Dr. Faye states that occasional bleeding with stent in place is normal, and with otherwise normal labs and CT no further workup is needed. He has scheduled follow up with the patient next week and he will remove the stent at that time. Lab and imaging findings as well as Urology recommendations discussed with the patient at bedside. Patient reassured, counseled to follow up as scheduled with his urologist. Pain medications offered but patient declined, stating that he would take [id number] medications instead. Discharge Plan Departure Patient Disposition: Home Clinical Impression: Ureteral stent present, Hematuria Instructions: DI for Hematuria Activity Restrictions/Additional Instructions: Your hemoglobin today does not indicate acute significant blood loss. Your kidney function is normal and your CT scan show that your stent is in the correct place without evidence of blockage or swelling. I discussed her case with Dr. Faye, who reviewed the labs and the imaging reports and he stated that this is normal pain from stent placement. Keep your scheduled follow up with Dr. Faye for stent removal. Drink plenty of fluids. Take 400 mg of ibuprofen and 1000 mg of Tylenol every 6 hours as needed for pain. Take no more than 4000 mg total of Tylenol daily. Prescriptions: No Action Cosentyx Pen (2 Pens) 150 mg/mL pen injector 300 mg SUBCUT Q4W Stand Alone Forms: Patient Portal/API
--- NOTE | 2023-08-17 19:15 | DI.CT.S_ITS ---
PROCEDURE: CT ABDOMEN PELVIS W CON INDICATIONS: lithotripsy 08/11, persistent severe flank pain, hematuria TECHNIQUE: After the administration of intravenous contrast, axial sections acquired from the lung bases to the pubic symphysis. Coronal and sagittal reformats were performed. For radiation dose reduction, the following was used: automated exposure control, adjustment of mA and/or kV according to patient size. COMPARISON: [facility], CR, XR KUB, 08/06/2023, 17:19. [facility], CT, CT ABDOMEN PELVIS W CON, 07/29/2023, 17:57. FINDINGS: Image quality: Diagnostic. Lower Chest: No pleural effusion. Small hiatal hernia. ABDOMEN: Liver: No solid mass. Gallbladder: No radiopaque gallstones or wall thickening. Biliary ducts: No biliary dilation. Pancreas: No ductal dilation. Spleen: Size is within normal limits. Adrenal Glands: No adrenal nodules. Kidneys and Ureters: No hydronephrosis. Left double-J ureteral stent projects in the expected location. Previously seen calculus at the proximal left ureter is no longer present. Small nonobstructing kidney stones bilaterally. No solid renal mass. Simple appearing cyst at the superior pole of the left kidney. Stomach and Bowel: Normal colonic caliber, without significant wall thickening. Normal appendix. Peritoneum: No abnormal intraperitoneal fluid. No free air. Ventral Wall: Small fat containing umbilical hernia. Abdominal Nodes: No retroperitoneal or mesenteric adenopathy by size criteria. Vessels: Aorta and inferior vena cava are normal in size. PELVIS: Pelvic Organs: Unremarkable. Bladder: No bladder wall thickening, accounting for underdistention. Pelvic Nodes: No enlarged lymph nodes. Miscellaneous: No inguinal hernias are seen. Bones: No aggressive osseous abnormality. Bridging vertebral body osteophytes or syndesmophytes. A few small bone islands. IMPRESSION: 1. Left double-J ureteral stent projects in the expected location. No hydronephrosis. No obstructing calculus. 2. Small bilateral nonobstructing kidney stones. 3. Bridging vertebral body osteophytes or syndesmophytes. This raises the possibility of ankylosing spondylitis. 4. Small hiatal hernia. Dictated by: Mega Swenson M.D. on 08/17/2023 at 20:04 Approved by: Mega Swenson M.D. on 08/17/2023 at 20:11
[2023-08-17 20:59] VITALS: BP 143/80; PULSE 74; RESP 16; O2SAT 96
== END 2023-08-17 20:54 | disposition home or self-care (01) ==
PROVIDERS: Emergency Medicine; Emergency Provider Emergency Medicine
DX: R31.9 Hematuria, unspecified (principal); M54.9 Dorsalgia, unspecified; Z96.0 Presence of urogenital implants
CPT/HCPCS: 74177; 80053; 81001; 85025; 87086; 96374; 99284; J1885; Q9967

== ENCOUNTER → 2023-08-20 14:56 | Outpatient (CLI) | payer OTHER, SELFPAY | PROVIDERS: Visit Provider Urology | DX: R39.9 Unspecified symptoms and signs involving the genitourinary system (principal); Z96.0 Presence of urogenital implants | CPT/HCPCS: 52310; 81002; 87086 ==

== ENCOUNTER 2023-12-07 18:40 | Emergency (ER) | payer OTHER, SELFPAY ==
[2023-12-07 18:48] VITALS: BP 139/84; PULSE 82; RESP 18; TEMP 36.9; O2SAT 96; BMI 33.2
[2023-12-07 19:59] VITALS: PULSE 82; O2SAT 98
[2023-12-07 20:00] VITALS: BP 147/83; PULSE 80; O2SAT 94
--- NOTE | 2023-12-07 20:11 | ED.BACK ---
HPI - Back Pain/Injury General Chief Complaint: Back Pain/Injury Stated Complaint: Severe R Lower Back Pain, Hist of Kidney Stones Time Seen by Provider: 12/07/23 19:56 Source: patient Mode of arrival: Ambulatory Limitations: no limitations History of Present Illness HPI Narrative: Patient is a 48-year-old male who is here for evaluation of right lower back/right back discomfort. Since has been present for the past 4 days. He states they are periods of time would in his worse than others. No urinary symptoms. No change in bowel habits. No fevers. No skin changes. He states he does have history of kidney stones. Has needed procedures in the past because of the stones. He states this feels somewhat like his prior history of stones. Has not tried anything for the symptoms prior to arrival. Related Data Home Medications Medication Instructions Recorded Confirmed secukinumab 150 mg/mL subcutaneous 300 mg SUBCUT Q4W 08/11/23 08/20/23 pen injector (Cosentyx Pen 300 mg/2 Pens () Allergies Allergy/AdvReac Type Severity Reaction Status Date / Time No Known Drug Allergies Allergy Verified 10/18/23 13:13 Review of Systems Review of Systems Narrative: See HPI Patient History Medical History Abdominal pain Left renal stone History of kidney stones Left flank pain Obstruction of left ureteropelvic junction (UPJ) due to stone COVID-19 virus infection (07/31/21) Right ureteral calculus Kidney stones Rheumatoid arthritis Surgical History Hx of cystoscopy (08/01/21) History of tonsillectomy Social History household members: spouse and children Smoking Status: Never smoker alcohol intake: never caffeine: Yes Type(s) of exercise: other frequency: 3-4 times per week Smoking Status: Never smoker alcohol intake frequency: 0-2 drinks per day Substance Use Type: does not use Exam Initial Vital Signs Initial Vital Signs: Vital Signs Temperature 98.4 F 12/07/23 18:48 Pulse Rate 82 12/07/23 18:48 Respiratory Rate 18 12/07/23 18:48 Blood Pressure 139/84 12/07/23 18:48 Pulse Oximetry 96 12/07/23 18:48 Oxygen Delivery Method Room Air 12/07/23 18:48 Const General: cooperative, comfortable and No ill appearing HENMT Head: normal to inspection and normocephalic Resp Effort & Inspection: normal respiratory effort Auscultation: clear to auscultation bilaterally Cardio Rate: regular rate Rhythm: regular rhythm Back/Spine/Pelvis Back: No CVA tenderness Skin General: no rashes or lesions noted Neuro General: patient alert, patient awake and moves all extremities Extrem General: capillary refill normal Course Orders Ordered: ED Orders 12/07/23 19:07 Urine Microscopic Stat 12/07/23 20:12 CT kidney ureter bladder (KUB) Stat Discontinued Medications Diphenhydramine HCl (Diphenhydramine 25 Mg Tablet) 25 mg PO NOW ONE Stop: 12/07/23 20:31 Last Admin: 12/07/23 20:33 Dose: Not Given Documented By: SB Ondansetron HCl (Ondansetron 4 Mg/2 Ml Inj) 4 mg IV NOW PRN PRN Reason: Nausea And Vomiting Ondansetron HCl (Ondansetron 4 Mg Odt) 4 mg SL NOW PRN PRN Reason: Nausea And Vomiting Vital Signs Vital signs: Vital Signs - 8 hr 12/07/23 18:48 12/07/23 19:59 12/07/23 20:00 Temperature 98.4 F Pulse Rate 82 82 Respiratory Rate 18 Blood Pressure 139/84 147/83 H Pulse Oximetry 96 98 Oxygen Delivery Method Room Air 12/07/23 20:00 12/07/23 20:27 12/07/23 20:27 Temperature Pulse Rate 80 76 Respiratory Rate Blood Pressure 154/86 H Pulse Oximetry 94 96 Oxygen Delivery Method Room Air 12/07/23 20:30 12/07/23 20:30 12/07/23 21:00 Temperature Pulse Rate 74 Respiratory Rate Blood Pressure 146/73 H 159/98 H Pulse Oximetry 95 Oxygen Delivery Method 12/07/23 21:00 Temperature Pulse Rate 82 Respiratory Rate Blood Pressure Pulse Oximetry 95 Oxygen Delivery Method MDM - Back Pain/Injury Lab Data Attestation: I reviewed the patient's lab results. Labs: Lab Results 12/07/23 Range/Units 19:07 Urine RBC 0-1/hpf D (0-5/HPF) Urine WBC None seen (0-5/HPF) Ur Squamous Epith Cells None seen (0-5/HPF) Urine Bacteria None seen (None) Ur Culture Indicated? Cult not indicated Vol Urine Centrifuged 10ml (spun) Urine Dip Bedside Urine Glucose Negative Bedside Urine Bilirubin - Negative Bedside Urine Ketone - Negative Urine Specific [place] 1.025 Bedside Urine Occult Blood +/- Bedside Urine pH 5.5 Bedside Urine Protein - Negative Bedside Urine Urobilinogen - Negative Bedside Urine Nitrite - Negative Bedside Urine Leukocytes - Negative Esterase Imaging Data CT scan - abdomen/pelvis: Radiologist's Impression: PROCEDURE: CT KIDNEY URETER BLADDER (KUB) INDICATIONS: Right-sided flank pain eval for stone TECHNIQUE: Axial sections were acquired from the lung bases to the pubic symphysis. Coronal and sagittal reformats were performed. For radiation dose reduction, the following was used: automated exposure control, adjustment of mA and/or kV according to patient size. COMPARISON: [facility], CT, CT KIDNEY URETER BLADDER (KUB), 07/26/2021, 20:06. FINDINGS: Image quality: Diagnostic. Lower Chest: No significant findings. URINARY: Right Kidney: Nonobstructing stones are seen in mid to lower pole right kidney measures up to 8 x 5 mm in size in lower pole right kidney. No obstructing stones or hydronephrosis. Right Ureter: No hydroureter. Left Kidney: Nonobstructing stones are noted in left kidney measures up to 2 mm in size. No hydronephrosis. Simple appearing exophytic left renal cyst is seen. Left Ureter: No hydroureter. Bladder: Normal wall thickness. No stones. ABDOMEN: Liver: No contour-deforming solid mass. Hepatomegaly and mild hepatic steatosis is seen. Gallbladder: No radiopaque gallstones or wall thickening. Biliary ducts: No biliary dilation. Pancreas: No ductal dilation. Spleen: Size is within normal limits. Adrenal Glands: No adrenal nodules. Stomach and Bowel: There is no bowel obstruction. Questionable enlarged appendix in right lower quadrant is seen and measures 1.1 cm in diameter series 2, image 56. Minimal adjacent fat stranding in right lower quadrant is also noted. No abscess collection. No other area of abnormal bowel wall thickening. Fecal stasis in the colon is seen. Peritoneum: No abnormal intraperitoneal fluid. No free air. Ventral Wall: No hernia. Abdominal Nodes: No enlarged retroperitoneal or mesenteric lymph nodes. Vessels: Aorta and inferior vena cava are normal in size. PELVIS: Pelvic Organs: Unremarkable. Pelvic Nodes: Unremarkable. Miscellaneous: No inguinal hernias are seen. Bones: No aggressive appearing bony lesions. IMPRESSION: 1. Bilateral nonobstructing renal calculi as above. No obstructing renal stones or hydronephrosis. No hydroureter. No gross abnormality is in the urinary bladder. 2. Incidentally noted of questionable enlarged appendix in right lower quadrant with minimal adjacent fat stranding, very early acute appendicitis cannot be excluded, suggest clinical correlation. There is no signs of perforation. No free fluid or free air. No other area of abnormal bowel wall thickening. No bowel obstruction. [facility] Narrative Medical decision making narrative: His urinalysis shows no signs of infection. His CT scan today does not show signs of a kidney stone. There was some question on the CT scan about thickening around the appendix however he was no discomfort in his right lower quadrant in the area where his pain is posteriorly is more in his right flank not right lower back were would expect a appendicitis to potentially be located. I did discuss this with him and we discussed that if his symptoms continue to worsen or he develops right lower quadrant pain he needed to return to the emergency department. There was no skin changes concerning for zoster. We did discuss return precautions. She expressed understanding and agreement. Discharge Plan Departure Patient Disposition: Home Clinical Impression: Flank pain Instructions: DI for Flank Pain Activity Restrictions/Additional Instructions: You can continue to do do conservative measures such as heat/ice and also Tylenol and ibuprofen. Contact your primary doctor for follow-up. Return to the emergency department for new or worsening symptoms. Prescriptions: No Action Cosentyx Pen (2 Pens) 150 mg/mL pen injector 300 mg SUBCUT Q4W Referrals: Doctor Almeida MD [Primary Care Provider] - Stand Alone Forms: Patient Portal/API
[2023-12-07 20:22] LABS: Bacteria Urine None Seen; Squamous Epithelial Cell Urine None Seen (0-5/HPF); Urine Volume 10mL (spun); WBC Urine None Seen (0-5/HPF)
[2023-12-07 20:23] LABS: Culture Indicated Urine Cult Not Indicated; RBC Urine 0-1/HPF (0-5/HPF)
[2023-12-07 20:27] VITALS: BP 154/86; PULSE 76; O2SAT 96
[2023-12-07 20:30] VITALS: BP 146/73; PULSE 74; O2SAT 95
[2023-12-07 21:00] VITALS: BP 159/98; PULSE 82; O2SAT 95
== END 2023-12-07 21:16 | disposition home or self-care (01) ==
PROVIDERS: Emergency Provider Emergency Medicine
DX: R10.9 Unspecified abdominal pain (principal)
CPT/HCPCS: 74176; 81003; 81015; 99283; 99284

== ENCOUNTER → 2024-01-12 13:22 | Outpatient (CLI) | payer OTHER, SELFPAY ==
[2024-01-12 14:43] LABS: Add Manual Diff / Slide Review NO; Basophils Absolute Auto 100 /uL (0-100); Basophils Percent Auto 0.7 % (0-2); Eosinophils Absolute Auto 400 /uL (0-450); Eosinophils Percent Auto 4.8 % (2-4); Hematocrit 44.9 % (41-53); Hemoglobin 15.5 g/dL (13.5-17.5); Lymphocytes Absolute Auto 1700 /uL (1100-4500); Lymphocytes Percent Auto 22.4 % (25-40); Mean Corpuscular HGB Conc 34.6 % (30-36); Mean Corpuscular Hemoglobin 32.5 PG (26-34); Mean Corpuscular Volume 94.1 fL (80-100); Monocytes Absolute Auto 700 /uL (0-900); Monocytes Percent Auto 9.6 % (3-14); Neutrophils Absolute Auto 4700 /uL (1500-7000); Neutrophils Percent Auto 62.5 % (50-75); Platelet Count 231 X10^3/uL (150-400); Red Blood Cell Count 4.77 X10^6/uL (4.5-5.9); Red Cell Distribution Width 13.6 % (11.6-14.8); White Blood Cell Count 7.5 X10^3/uL (4.5-11.0)
[2024-01-12 14:56] LABS: Alanine Aminotransferase 65 IU/L (<50); Albumin 4.5 g/dL (3.5-5.0); Albumin Globulin Ratio 1.8 (1.0-2.8); Alkaline Phosphatase 73 U/L (38-126); Aspartate Aminotransferase 54 IU/L (17-59); BUN Creatinine Ratio 15.9 (6-22); Bilirubin Total 0.6 mg/dL (0.2-1.3); Blood Urea Nitrogen 14 mg/dL (9-20); Calcium 9.4 mg/dL (8.4-10.2); Carbon Dioxide 26 mmol/L (22-32); Chloride 104 mmol/L (98-107); Cholesterol 203 mg/dL (140-199); Estimated Glomerular Filt Rate > 60 mL/min (>60); Globulin 2.5 g/dL (1.7-4.1); Glucose 114 mg/dL (70-100); HDL Cholesterol 34 mg/dL (40-60); HEMOLYSIS < 15 (0-50); LDL Cholesterol Calculated 105 mg/dL (<100); Sodium 139 mmol/L (137-145); Triglycerides 322 mg/dL (35-150)
[2024-01-12 15:27] LABS: TSH w/ Reflex to FT4 0.98 uIU/mL (0.47-4.68)
[2024-01-13 14:52] LABS: Hemoglobin A1C% w Est Avg Glu 5.8 % (4.0-6.0)
== END ==
PROVIDERS: PCP Registered Nurse; Referring Provider Registered Nurse; Visit Provider Registered Nurse
DX: Z00.00 Encounter for general adult medical examination without abnormal findings (principal); Z13.29 Encounter for screening for other suspected endocrine disorder; Z13.0 Encounter for screening for diseases of the blood and blood-forming organs and certain disorders involving the immune mechanism; Z13.220 Encounter for screening for lipoid disorders
CPT/HCPCS: 36415; 80053; 80061; 83036; 84443; 85025

== ENCOUNTER → 2024-01-16 11:56 | Outpatient (ROUT) | payer OTHER, SELFPAY ==
[2024-01-16 12:55] LABS: Influenza A - CEPHEID Flu A NEGATIVE (NEGATIVE); Influenza B - CEPHEID Flu B NEGATIVE (NEGATIVE); Respiratory Syncytial Virus Negative (Negative)
[2024-01-16 12:59] LABS: COVID-19 CEPHEID 4-PLEX PCR Negative (Negative)
== END ==
PROVIDERS: PCP Registered Nurse; Visit Provider Registered Nurse
DX: J32.9 Chronic sinusitis, unspecified (principal); R53.83 Other fatigue
CPT/HCPCS: 0241U

== ENCOUNTER → 2024-01-16 13:58 | Outpatient (CLI) | payer OTHER, SELFPAY ==
--- NOTE | 2024-01-16 13:59 | DI.CT.S_ITS ---
PROCEDURE: CT KIDNEY URETER BLADDER (KUB) INDICATIONS: hematuria,bilateral nephrolithiasis,flank pain acu TECHNIQUE: Axial sections were acquired from the lung bases to the pubic symphysis. Coronal and sagittal reformats were performed. For radiation dose reduction, the following was used: automated exposure control, adjustment of mA and/or kV according to patient size. COMPARISON: [facility], CT, CT KIDNEY URETER BLADDER (KUB), 12/07/2023, 20:22. FINDINGS: Image quality: Diagnostic. Lower Chest: Small hiatal hernia. Normal heart size. Lung bases are clear. URINARY: Right Kidney: Multiple nonobstructive parenchymal stones, unchanged from recent previous study. The largest right renal stone, in the lower pole, measuring approximately 8 mm, has a Hounsfield measurement of 1049. No hydronephrosis. Right Ureter: No hydroureter. Left Kidney: 3 mm nonobstructing middle pole stone. No hydronephrosis. Left Ureter: No hydroureter. Bladder: Normal wall thickness. No stones. ABDOMEN: Liver: No contour-deforming solid mass. Gallbladder: No radiopaque gallstones or wall thickening. Biliary ducts: No biliary dilation. Pancreas: No ductal dilation. Spleen: Size is within normal limits. Adrenal Glands: No adrenal nodules. Stomach and Bowel: Moderate fecal impaction. Large diffuse fecal load. Again noted is a prominent fluid-filled appendix, which is not inflamed in appearance, likely simply a prominent appendix. Peritoneum: No abnormal intraperitoneal fluid. No free air. Ventral Wall: No hernia. Abdominal Nodes: No enlarged retroperitoneal or mesenteric lymph nodes. Vessels: Aorta and inferior vena cava are normal in size. PELVIS: Pelvic Organs: Unremarkable. Pelvic Nodes: Unremarkable. Miscellaneous: Bilateral small, fat containing inguinal hernias are seen. Bones: Findings suggest ankylosing spondylitis. 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 IMPRESSION: 1. Multiple nonobstructing bilateral renal stones, as before. No hydronephrosis. No ureteral stones. 2. Moderate rectal fecal impaction. Large diffuse fecal load. 3. Findings suggesting ankylosing spondylitis. 4. Small bilateral fat containing inguinal hernias. Dictated by: Andrea Shelton M.D. on 01/16/2024 at 15:56 Approved by: Andrea Shelton M.D. on 01/16/2024 at 16:13
== END ==
PROVIDERS: PCP Registered Nurse; Referring Provider Registered Nurse; Visit Provider Registered Nurse
DX: N20.0 Calculus of kidney (principal); K40.20 Bilateral inguinal hernia, without obstruction or gangrene, not specified as recurrent; K44.9 Diaphragmatic hernia without obstruction or gangrene; K56.41 Fecal impaction; R31.9 Hematuria, unspecified; R10.9 Unspecified abdominal pain; J32.9 Chronic sinusitis, unspecified; R53.83 Other fatigue
CPT/HCPCS: 0241U; 74176

== ENCOUNTER → 2024-03-19 16:08 | Outpatient (CLI) | payer OTHER, SELFPAY ==
--- NOTE | 2024-03-19 16:09 | DI.US.S_ITS ---
PROCEDURE: US SOFT TISSUE HEAD AND NECK INDICATIONS: right cervical nodule enlargement TECHNIQUE: Real-time scanning was performed of the left neck region of interest, with image documentation. COMPARISON: None. FINDINGS: In the left neck area of current clinical concern anteriorly the submandibular gland measures normal in appearance, with a small internal lymph node anteriorly and posteriorly, with cortical thickness between 0.1 and 0.3 cm. More inferiorly several small anterior cervical lymph node structures are again seen, each measuring between 3 and 4 mm AP. No enlarged lymph nodes are seen. IMPRESSION: No enlarged lymph nodes identified. Continued clinical follow-up is recommended. If clinical concerns persist or increase follow-up advanced imaging by contrast-enhanced MR scanning could be utilized. Dictated by: Rigoberto Bowden M.D. on 03/20/2024 at 7:00 Approved by: Rigoberto Bowdne M.D. on 03/20/2024 at 7:05
== END ==
PROVIDERS: PCP Registered Nurse; Referring Provider Registered Nurse; Visit Provider Registered Nurse
DX: R59.0 Localized enlarged lymph nodes (principal)
CPT/HCPCS: 76536

== ENCOUNTER 2024-06-12 19:04 | Emergency (ER) | payer OTHER, SELFPAY ==
[2024-06-12 19:16] VITALS: BP 130/79; PULSE 72; RESP 16; TEMP 36.4; O2SAT 95; BMI 32.5
[2024-06-12 21:58] VITALS: TEMP 37.4
--- NOTE | 2024-06-12 22:09 | ED.SKABFB ---
HPI - Skin/Abscess/Foreign Bdy General Chief complaint: Skin/Abscess/Foreign Body Stated complaint: POSS INFECTION RT SIDE CHEST T-2 Time Seen by Provider: 06/12/24 22:03 Source: patient, RN notes reviewed and old records reviewed Mode of arrival: Ambulatory Limitations: no limitations History of Present Illness HPI narrative: 48-year-old male history of hypertension, rheumatoid arthritis with complaint of a bump on his right chest. Patient states the bump showed up about 2 days ago I thought it might be little bit of ingrown hair he was squeezed on a has a little bit of clear fluid and then today noticed it had increasing redness surrounding and more tenderness. No softness or drainage. He states no fevers or chills. No other chest pain or shortness of breath, no nausea or vomiting no other GI or urinary symptoms. He has not had issues with skin infections in the past. He was on Cosentyx and blood pressure medication. No known drug allergies. No tobacco, occasional alcohol, no recreational drugs. Related Data Home Medications Medication Instructions Recorded Confirmed secukinumab 150 mg/mL subcutaneous 300 mg SUBCUT Q4W 08/11/23 03/28/24 pen injector (Cosentyx Pen 300 mg/2 Pens () losartan 25 mg tablet mg PO DAILY 03/28/24 03/28/24 sildenafil 100 mg tablet mg PO 03/28/24 03/28/24 Previous Rx's Medication Instructions Recorded doxycycline hyclate 100 mg tablet 100 mg PO BID #14 tabs 06/12/24 Allergies Allergy/AdvReac Type Severity Reaction Status Date / Time No Known Drug Allergies Allergy Verified 03/28/24 13:03 Review of Systems Review of Systems ROS Unobtainable: All systems reviewed & are unremarkable except as noted in HPI and below Patient History Medical History Abdominal pain Left renal stone History of kidney stones Left flank pain Obstruction of left ureteropelvic junction (UPJ) due to stone COVID-19 virus infection (07/31/21) Right ureteral calculus Kidney stones Rheumatoid arthritis Surgical History Hx of cystoscopy (08/01/21) History of tonsillectomy Social History household members: spouse and children alcohol intake: never caffeine: Yes Type(s) of exercise: other frequency: 3-4 times per week alcohol intake frequency: 0-2 drinks per day Exam Narrative Exam Narrative: GENERAL: Alert and oriented x three, male in mild distress HEENT: Head normocephalic, atraumatic, EOMI, pupils reactive, face symmetric, moist mucous membranes NECK: Supple, full range of motion CARDIOVASCULAR: Regular rate and rhythm without murmurs, rubs or gallops. RESPIRATORY: Breath sounds equal bilaterally, no wheezes rales or rhonchi. ABDOMEN: Soft, nontender. Normoactive bowel sounds all 4 quadrants. No guarding or rebound, rigidity, no mass : No CVA tenderness EXTREMITIES: Normal range of motion, no clubbing or edema. Neurovascularly intact NEUROLOGICAL: Cranial nerves II through XII grossly intact. Moving all extremities SKIN: Warm, dry, no petechiae, patient has small scab on the right mid chest underneath the pectoral region, there is about a surrounding 2-3 cm irregularly ovoid shaped area of erythema, no other surrounding rash appreciated no fluctuance, no fluid collection there is a slight amount of induration at the scab which is punctate. No drainage with palpation. Initial Vital Signs Initial Vital Signs: Vital Signs Temperature 97.6 F 06/12/24 19:16 Pulse Rate 72 06/12/24 19:16 Respiratory Rate 16 06/12/24 19:16 Blood Pressure 130/79 06/12/24 19:16 Pulse Oximetry 95 06/12/24 19:16 Oxygen Delivery Method Room Air 06/12/24 19:16 Course Orders Ordered: Discontinued Medications Doxycycline Hyclate (Doxycycline Hyclate 100 Mg Tablet) 100 mg PO NOW ONE Stop: 06/12/24 22:23 Last Admin: 06/12/24 22:31 Dose: 100 mg Documented By: AB Vital Signs Vital signs: Vital Signs - 8 hr 06/12/24 19:16 06/12/24 21:58 Temperature 97.6 F 99.4 F Pulse Rate 72 Respiratory Rate 16 Blood Pressure 130/79 Pulse Oximetry 95 Oxygen Delivery Method Room Air MDM - Skin/Abscess/Foreign Bdy MDM Narrative Medical decision making narrative: 48-year-old male has not appears to be cellulitis of the right chest. Could be a possible folliculitis or ingrown hair causing his changes no abscess or fluid collection appreciated. Patient is on Cosentyx for rheumatoid arthritis but has not had prior skin infections or issues with infections. We will go ahead and cover with antibiotic he does not have an abscess or anything that is drainable at this time. Warm compresses and return precautions. Discharge Plan Departure Patient Disposition: Home Clinical Impression: Cellulitis of chest wall Instructions: DI for Cellulitis -- Adult Activity Restrictions/Additional Instructions: Follow up for recheck if you are cellulitis or the infection underneath your skin is not resolving. You may have little bit of folliculitis sort ingrown hair, you can use warm compresses to the affected area 3-4 times daily for 10 minutes. Take oral antibiotics until completed. Prescription sent to [facility] in [place]. Please return if you develop fevers, rapidly worsening redness, increasing swelling, increasing pain, any purulent drainage, vomiting or other new or concerning changes. Prescriptions: New doxycycline hyclate 100 mg tablet 100 mg PO BID Qty: 14 0RF No Action sildenafil 100 mg tablet PO Patient Comments: [NO ORIGINAL SIG] losartan 25 mg tablet PO DAILY Cosentyx Pen (2 Pens) 150 mg/mL pen injector 300 mg SUBCUT Q4W Referrals: Julisa Farfan ARNP [Primary Care Provider] - Stand Alone Forms: Patient Portal/API/Survey
[2024-06-12] MEDS: DOXYCYCLINE HYCLATE 100 MG TABLET PO (22:31)
[2024-06-12 22:32] VITALS: BP 126/75; PULSE 67; RESP 15; O2SAT 97
== END 2024-06-12 22:32 | disposition home or self-care (01) ==
PROVIDERS: Emergency Provider Emergency Medicine; PCP Registered Nurse
DX: L03.313 Cellulitis of chest wall (principal)
CPT/HCPCS: 99283